=== PATIENT | female | born 1975 | race Caucasian/White ===

== ENCOUNTER → 2016-11-04 | Outpatient (CLI) | payer BC ==
--- NOTE | 2016-11-05 15:09 | RAD ---
DATE: 11/04/2016 EXAM: DIGITAL SCREEN BILAT W/CAD HISTORY: Routine screening COMPARISON: Baseline study This study was interpreted with the benefit of Computerized Aided Detection (CAD). FINDINGS: The fibroglandular pattern in the breasts is heterogeneously dense. This can limit the sensitivity of mammography. No breast mass is identified. Minimal benign type calcification is present in the right. No suspicious microcalcifications are evident. IMPRESSION: There is no mammographic evidence of malignancy in either breast. BI-RADS CATEGORY: 2 BENIGN FINDING(S) RECOMMENDED FOLLOW-UP: 12M 12 MONTH FOLLOW-UP PQRS compliance statement: Patient information was entered into a reminder system with a target due date for the next mammogram. Mammography is a sensitive method for finding small breast cancers, but it does not detect them all and is not a substitute for careful clinical examination. A negative mammogram does not negate a clinically suspicious finding and should not result in delay in biopsying a clinically suspicious abnormality. "Our facility is accredited by the [employer] Mammography Program."
== END | disposition home or self-care (01) ==
LOC: MAMMO 16:26
PROVIDERS: ATTEND Obstetrics & Gynecology
DX: Z12.31 Encounter for screening mammogram for malignant neoplasm of breast (principal)
CPT/HCPCS: G0202; 77067

== ENCOUNTER 2018-02-08 00:09 | Inpatient (IN) | payer BC ==
[2018-02-08] MEDS ORDERED: MORPHINE SULFATE 4 MG/ML DISP.SYRIN. (00:53)
[2018-02-08 00:55] LABS: ADD MAN DIFF? NO
[2018-02-08] MEDS: MORPHINE SULFATE 10 MG/ML VIAL. IV (00:57)
[2018-02-08 00:58] LABS: BASO # 0.1 x10^3/uL (0.0-0.2); BASO % 1 % (0-3); EOS # 0.8 x10^3/uL (0.0-0.7); EOS % 5 % (0-3); HEMATOCRIT 45.9 % (36.0-47.0); HEMOGLOBIN 16.1 g/dL (12.0-15.5); LYMPH # 3.8 x10^3/uL (1.0-4.8); LYMPH % 22 % (24-48); MEAN CORPUSCULAR HEMOGLOBIN 35 pg (25-35); MEAN CORPUSCULAR HGB CONC 35 g/dL (31-37); MEAN CORPUSCULAR VOLUME 99 fL (79-100); MONO % 6 % (0-9); NEUT # 11.6 x10^3uL (1.8-7.7); NEUT % 67 % (31-73); PLATELET COUNT 297 x10^3/uL (140-400); RED BLOOD COUNT 4.62 x10^6/uL (3.50-5.40); WHITE BLOOD COUNT 17.4 x10^3/uL (4.0-11.0)
[2018-02-08] MEDS: ONDANSETRON PF 4 MG/2 ML VIAL. IV (00:58)
[2018-02-08 01:03] LABS: BILIRUBIN,URINE NEGATIVE (NEG); CLARITY,URINE CLEAR; COLOR,URINE YELLOW; GLUCOSE,URINE NEGATIVE (NEG); NITRITE,URINE NEGATIVE (NEG); PH,URINE 5.5; PROTEIN,URINE NEGATIVE (NEG-TRACE); UROBILINOGEN,URINE 0.2 mg/dL (0.2 mg/dL)
[2018-02-08 01:06] LABS: ANION GAP 9 (6-14); BLOOD UREA NITROGEN 14 mg/dL (7-20); CALCIUM 8.4 mg/dL (8.5-10.1); CARBON DIOXIDE 26 mmol/L (21-32); CHLORIDE 103 mmol/L (98-107); CREATININE 0.9 mg/dL (0.6-1.0); GFR 68.3; GLUCOSE 121 mg/dL (70-99); NEG OBC UR NEG; POS OBC UR POS; SODIUM 138 mmol/L (136-145); U PREG PATIENT NEGATIVE (NEG)
[2018-02-08 01:08] LABS: BACTERIA,URINE FEW /HPF (0-FEW); SQUAMOUS EPITHELIAL CELL,UR MOD /LPF; WBC,URINE OCC /HPF (0-4)
[2018-02-08 01:14] LABS: ALBUMIN 3.7 g/dL (3.4-5.0); ALK PHOS 67 U/L (46-116); ALT (SGPT) 33 U/L (14-59); AST (SGOT) 11 U/L (15-37); DIRECT BILIRUBIN 0.1 mg/dL (0.0-0.2); LIPASE 213 U/L (73-393); TOTAL BILIRUBIN 0.4 mg/dL (0.2-1.0); TOTAL PROTEIN 7.2 g/dL (6.4-8.2)
[2018-02-08] MEDS ORDERED: CONTRAST GIVEN MC (01:15)
[2018-02-08] MEDS: IOHEXOL 300 MG/ML 100ML VIAL. IV (01:37)
[2018-02-08] MEDS ORDERED: IV RINGERS,LACTATED 1000ML 1,000 ML IV (02:30)
[2018-02-08] MEDS ORDERED: ONDANSETRON PF 4 MG/2 ML VIAL. IV ×2 (02:30→08:15)
[2018-02-08] MEDS: cefOXitin SODIUM IV Push 1 GM VIAL. IVP ×5 (03:04→23:08)
[2018-02-08] MEDS ORDERED: LIDOCAINE 1% PF 2 ML VIAL. ID (08:15)
[2018-02-08] MEDS ORDERED: fentaNYL PF VIAL 100 MCG/2 ML VIAL IV (08:15)
[2018-02-08] MEDS ORDERED: PROPOFOL 20 ML IV ×2 (08:37→10:17)
[2018-02-08] MEDS ORDERED: ONDANSETRON PF 4 MG/2 ML VIAL. (08:37)
[2018-02-08] MEDS ORDERED: fentaNYL PF VIAL 100 MCG/2 ML VIAL (08:37)
[2018-02-08] MEDS ORDERED: DEXAMETHASONE SOD PHOS 20 MG/5 ML VIAL. (08:37)
[2018-02-08] MEDS ORDERED: LIDOCAINE 2% PF Vial for OR 5 ML VIAL. (08:37)
[2018-02-08] MEDS ORDERED: ROCURONIUM 50 MG/5 ML VIAL. (08:37)
[2018-02-08] MEDS ORDERED: SUCCINYLCHOLINE 200 MG/10 ML VIAL. (08:37)
[2018-02-08] MEDS ORDERED: MIDAZOLAM HCL/PF 2 MG/2 ML VIAL. (09:18)
[2018-02-08] MEDS: BUPIVACAINE-EPI 0.25%-1:200000 50 ML VIAL. (09:51)
[2018-02-08] MEDS ORDERED: GLYCOPYRROLATE 1 MG/5 ML VIAL. (10:09)
[2018-02-08] MEDS ORDERED: NEOSTIGMINE METHYLSULFATE 5 MG/5 ML SYRINGE. (10:09)
[2018-02-08] MEDS ORDERED: SEVOFLURANE 61 TO 120 MINUTES. IH (10:24)
[2018-02-08] MEDS: IV RINGERS,LACTATED 1000ML 1,000 ML IV (10:30)
[2018-02-08] MEDS: PROCHLORPERAZINE 10 MG/2 ML VIAL. IV (10:50)
[2018-02-08] MEDS: fentaNYL PF VIAL 100 MCG/2 ML VIAL IV ×4 (10:50→12:22)
[2018-02-08] MEDS: MORPHINE SULFATE 4 MG/ML DISP.SYRIN. IV ×5 (11:26→16:04)
[2018-02-08] MEDS: oxyCODONE/APAP 5/325 1 TAB TABLET PO ×2 (18:46→23:09)
[2018-02-08] MEDS: LACTOBACILLUS RHAMNOSUS GG 1 CAPSULE. PO (20:32)
[2018-02-09] MEDS: cefOXitin SODIUM IV Push 1 GM VIAL. IVP ×2 (05:11→12:43)
[2018-02-09] MEDS: oxyCODONE/APAP 5/325 1 TAB TABLET PO ×2 (05:12→12:55)
[2018-02-09] MEDS: LACTOBACILLUS RHAMNOSUS GG 1 CAPSULE. PO (08:18)
[2018-02-09] MEDS: SOTALOL 80 MG TABLET. PO (08:19)
[2018-02-09] MEDS: DIGOXIN 250 MCG TABLET. PO (08:53)
== END 2018-02-09 17:00 | disposition home or self-care (01) | DRG 343 ==
LOC: ER 00:09 → 4 NORTH 02:20
PROC: 0DTJ4ZZ Resection of Appendix, Percutaneous Endoscopic Approach (ICD-10-PCS; principal; 2018-02-08 09:24)
DX: K35.80 Unspecified acute appendicitis (principal); E86.0 Dehydration; F17.210 Nicotine dependence, cigarettes, uncomplicated; J32.9 Chronic sinusitis, unspecified; Z90.710 Acquired absence of both cervix and uterus
CPT/HCPCS: 36415; 74177; 80048; 80076; 81001; 81025; 83690; 85025; 88304; 96374; 96375; 99285; 99285-25; A7015; J0330; J0694; J0780; J1100; J2250; J2270; J2405; J2704; J2710; J3010; J3490; J7030; J7120; Q9967

== ENCOUNTER 2021-04-07 14:53 | Emergency (ER) | payer BC ==
[~2021-04-07] VITALS: Ht 180.3 cm; Wt 97.3 kg
[~2021-04-07 14:53] MED LIST: DIGO250T3 PO; SOTA80TA48 PO
--- NOTE | 2021-04-07 15:22 | PHYS DOC ---
Past Medical History Past Medical History: No Pertinent History Additional Past Medical Histor: svt WITH MITRAL VALVE PROLAPSE (TIANNAEDY CORPORATE RECEPTIONIST) Past Surgical History: , Hysterectomy (ALBANEDY CONLEY CORPORATE RECEPTIONIST) Smoking Status: Current Every Day Smoker Alcohol Use: Occasionally Drug Use: None (EDY WYNN CORPORATE RECEPTIONIST) General Adult EDM: Chief Complaint: CHEST PAIN HPI: HPI: Patient is a 46 year old female who presents with early this morning woke up with a sharp stabbing pain in the left neck that went into the left shoulder and down into the left rib cage. She states she took some Aleve and went back to sleep. She stated that about 7:00 this morning she woke up and the pain was even worse. She states she is short of breath and the pain is now going into the chest and radiating through to the back and she states that sharp stabbing. States before coming to the emergency room she took 3 ibuprofen. She is rating her pain a 9 out of 10. Patient denies dizziness, headache, syncope, fever, cough, abdominal pain, nausea, vomiting, diarrhea, vision change, numbness or tingling, focal weakness. She is a history of SVT with mitral valve prolapse, sinus infection currently, hypertension, high cholesterol, , hysterectomy, smoker. She is currently taking metoprolol, atorvastatin, doxycycline for the sinus infection and Zyrtec. States she does not have a primary care doctor. She states that her chemist food is at [facility]. (EDY WYNN CORPORATE RECEPTIONIST) Review of Systems: Review of Systems: Constitutional: Denies fever or chills. [] Eyes: Denies change in visual acuity. [] HENT: Denies nasal congestion or sore throat. [] Respiratory: Denies cough or +shortness of breath. [] Cardiovascular: + chest pain or denies edema. [] GI: Denies abdominal pain, nausea, vomiting, bloody stools or diarrhea. [] : Denies dysuria. [] Musculoskeletal: + Left back back pain, + left neck or denies joint pain. + Left ribs [] Integument: Denies rash. [] Neurologic: Denies headache, focal weakness or sensory changes. [] Endocrine: Denies polyuria or polydipsia. [] Lymphatic: Denies swollen glands. [] Psychiatric: Denies depression or anxiety. [] (EDY WYNN APRN) Heart Score: C/O Chest Pain: Yes HEART Score for Chest Pain: HEART Score for Chest Pain Response (Comments) Value History Slighlty/Non-Suspicious 0 ECG Nonspecific Repolarizatio 1 Age >45 - < 65 1 Risk Factors >3 Risk Factors or Hx CAD 2 Troponin < Normal Limit 0 Total 4 Risk Factors: Risk Factors: DM, Current or recent (<one month) smoker, HTN, HLP, family history of CAD, obesity. Risk Scores: Score 0 - 3: 2.5% MACE over next 6 weeks - Discharge Home Score 4 - 6: 20.3% MACE over next 6 weeks - Admit for Clinical Observation Score 7 - 10: 72.7% MACE over next 6 weeks - Early Invasive Strategies (EDY WYNN APRN) Current Medications: Current Medications Medications (Trade) Dose Ordered Sig/Isaiah Start Time Stop Time Status Last Admin Dose Admin Aspirin (Edyta Aspirin) 325 mg 1X ONCE 04/07/21 15:15 04/07/21 15:16 UNV Fentanyl Citrate (Fentanyl 2ml Vial) 50 mcg 1X ONCE 04/07/21 15:15 04/07/21 15:16 UNV Orphenadrine Citrate (Norflex) 60 mg 1X ONCE 04/07/21 15:15 04/07/21 15:16 UNV Sodium Chloride 1,000 ml @ 1,000 mls/hr 1X ONCE 04/07/21 15:15 04/07/21 16:14 UNV (EDY WYNN APRN) Allergies: Allergies: Allergies Coded Allergies Type Severity Reaction Last Updated Verified Penicillins Allergy Unknown 02/08/18 Yes codeine Allergy Unknown 02/08/18 Yes latex Allergy Unknown 02/08/18 Yes (EDY WYNN APRN) Physical Exam: PE: Constitutional: Well developed, well nourished, no acute distress, non-toxic appearance. [] HENT: Normocephalic, atraumatic, bilateral external ears normal, oropharynx moist, no oral exudates, nose normal. [] Eyes: PERRLA, EOMI, conjunctiva normal, no discharge. [] Neck: Normal range of motion, no tenderness, supple, no stridor. [] Cardiovascular:Heart rate regular rhythm, no murmur [] Lungs & Thorax: Bilateral upper breath sounds clear and lower diminished to auscultation [] Abdomen: Bowel sounds normal, soft, no tenderness, no masses, no pulsatile melanie s. [] Skin: Warm, dry, no erythema, no rash. [] Back: No tenderness, no CVA tenderness. [] Extremities: No tenderness, no cyanosis, no clubbing, ROM intact, no edema. [] Neurologic: Alert and oriented X 3, normal motor function, normal sensory function, no focal deficits noted. [] Psychologic: Affect normal, judgement normal, mood normal. [] (EDY WYNN APRN) PE: Constitutional: Well developed, well nourished, no acute distress, non-toxic appearance HENT: Normocephalic, atraumatic Eyes: Conjunctiva normal, no discharge Neck: Normal range of motion, no tenderness, supple Lungs & Thorax: No respiratory distress, equal chest rise and fall Abdomen: Soft, no tenderness Skin: Warm, dry, no erythema, no rash Extremities: No tenderness, ROM intact, no edema Neurologic: Alert and oriented X 3, no focal deficits noted Psychologic: Affect normal, judgment normal (RASHAD BAÑUELOS DO) EKG: EK and read by Dr. Bañuelos is sinus rhythm no STEMI. (EDY WYNN APRN) Radiology/Procedures: Radiology/Procedures: [] Impression: [facility] [address] [place] [address] IMAGING REPORT Signed PATIENT: CAMRON GARCIA ACCOUNT: [id number] : 1975 LOCATION: ER AGE: 46 SEX: F EXAM STATUS: REG ER ORD. PHYSICIAN: EDY WYNN APRN REASON: chest pain PROCEDURE: PORTABLE CHEST 1V PROCEDURE: XR CHEST 1V.04/07/2021 4:10 PM REASON FOR STUDY: Reason: chest pain / Spl. Instructions: / History: . COMPARISON: Chest radiograph 05/27/2012. FINDINGS: There is some elevation of left hemidiaphragm. Hazy opacity is seen in the mid left lung. There is fullness of the left hilum. The right lung is clear. No pleural fluid is seen. Heart size is normal. IMPRESSION: Left hilar opacity and probably some upper lobe disease. Although the patient is relatively long, malignancy is a concern. CT chest may be useful. Electronically signed by: Elvia Groves Jr., MD (04/07/2021 4:11 PM) [facility] DICTATED and SIGNED BY: ELVIA GROVES Jr, MD DATE: 04/07/21 [id number] [facility] [address] [place] [address] IMAGING REPORT Signed PATIENT: CAMRON GARCIA ACCOUNT: [id number] : 1975 LOCATION: ER AGE: 46 SEX: F EXAM STATUS: REG ER ORD. PHYSICIAN: EDY WYNN APRN REASON: sharp chest pain radiating to back PROCEDURE: CT ANGIOGRAPHY CHEST CTA CHEST dated 04/07/2021 4:13 PM Indication:Reason: sharp chest pain radiating to back / Spl. Instructions: 100ML OMNI 350 / History: Comparison: Chest radiograph of earlier in the day. Technique: CT images were obtained using an infusion of 100 mL Omnipaque 350. MIP reconstructions were performed. One or more of the following individualized dose reduction techniques were utilized for this examination: 1. Automated exposure control 2. Adjustment of the mA and/or kV according to patient size 3. Use of iterative reconstruction technique Findings: There is a mass at the left hilum with obstruction of the main portion of the left upper lobe pulmonary artery and left upper lobe bronchus. Soft tissue density extends into the mediastinum and abuts the left atrial tendon age. Soft tissue abnormality here measures about 5.1 cm mediolaterally and 4.9 cm AP, although some of this may be atelectatic lung. There is some more peripheral infiltrate and atelectatic lung. There is a 3 mm nodule peripherally in the right upper lobe abutting the major fissure. The lungs otherwise are clear. The other central airways appear patent. Some mildly prominent axillary lymph nodes are seen bilaterally. There is a separate node at the AP window adjacent to the mass. This measures about 1.8 cm and is rounded. There is borderline enlarged subcarinal node. There is also borderline enlarged upper right hilar node. Evaluation of the pulmonary arterial tree shows no abnormal filling defect extending to the subsegmental branch level. Images through the upper abdomen show small hyperenhancing areas in both lobes the liver. The largest is seen anteriorly in the left lobe and measures about 2.6 cm. IMPRESSION: Left hilar, mediastinal and upper lobe mass suspicious for malignancy. Mild add itional adenopathy in the mediastinum and right hilum. Indeterminate liver lesions. These are not typical of most lung cancer metastases, although MRI is recommended for further characterization. Electronically signed by: Elvia Groves Jr., MD (04/07/2021 5:29 PM) [facility] DICTATED and SIGNED BY: ELVIA GROVES Jr, MD DATE: 04/07/21 [id number] (EDY WYNN APRN) Course & Med Decision Making: Course & Med Decision Making Pertinent Labs and Imaging studies reviewed. (See chart for details) See HPI. Chest pain cannot be reproduced with palpation but she states it does make it worse with movement of the left extremity. Lungs are clear in upper lobes and diminished in lower lobes. No extremity edema. Speaks in full clear sentences. Anxious. Skin pink warm and dry. Alert and oriented x4. Ambulatory with a steady gait. She has full range of motion in the left upper extremity. No unilateral swelling. Cap refills less than 2 seconds. Radial pulse strong and present. Chest x-ray and chest CT came back abnormal with a lung mass. Me and Dr. Bañuelos went in to speak with the patient and let her know the results. Patient is stable and in no distress. Her vital signs are within normal limits. Patient agrees to follow-up as outpatient as soon as possible by calling tomorrow with pulmonology. [] (EDY WYNN APRN) Course & Med Decision Making Patient presents with atypical chest pain. CTA concerning for focal mass. Patient is a smoker. Patient seen and evaluated by myself. Discussed concerning findings and need for patient to follow-up closely with pulmonology for further evaluation and definitive diagnosis. Prescription for pain medication provided. (RASHAD BAÑUELOS DO) Macy Disclaimer: Macy Disclaimer: This electronic medical record was generated, in whole or in part, using a voice recognition dictation system. (EDY WYNN APRN) Departure Departure Impression: Primary Impression: Mass of left lung Disposition: HOME / SELF CARE / HOMELESS Condition: STABLE Referrals: NO PCP (PCP) CHAS CHOUDHARY MD Patient Instructions: Incidental Abnormal Radiological Finding Additional Instructions: Follow-up as soon as possible. Remember to let them know that you were seen in the ER today and found a lung mass and you need to be seen urgently. If anything worsens return to the emergency room. Scripts Tramadol Hcl (TRAMADOL HCL) 50 Mg Tablet 50 MG PO Q6HRS PRN for PAIN, #14 TAB Prov: RASHAD BAÑUELOS DO 04/07/21 Attending Signature Attending Signature I have personally interviewed and examined the patient. All charts, labs, and imaging studies were reviewed. I agree with the PA/INSTRUCTIONAL SYSTEMS SPECIALIST's findings, exam, and plan. (RASHAD BAÑUELOS DO) EDY WYNN APRN Apr 07, 2021 15:22 RASHAD BAÑUELOS DO Apr 07, 2021 18:00
[2021-04-07] MEDS ORDERED: fentaNYL PF VIAL 100 MCG/2 ML VIAL IVP ONE ×2 (15:30→18:15)
[2021-04-07] MEDS ORDERED: ASPIRIN 325 MG TABLET PO ONE (15:30)
[2021-04-07] MEDS ORDERED: IV NORMAL SALINE 1000ML BAG 1,000 ML IV ONE ×2 (15:30→16:45)
[2021-04-07] MEDS ORDERED: ORPHENADRINE CITRATE 60 MG/2 ML VIAL. IV ONE (15:30)
[2021-04-07 15:40] LABS: BASO # 0.1 x10^3/uL (0.0-0.2); BASO % 1 % (0-3); EOS # 0.4 x10^3/uL (0.0-0.7); EOS % 3 % (0-3); HEMATOCRIT 41.9 % (36.0-47.0); HEMOGLOBIN 14.3 g/dL (12.0-15.5); LYMPH # 2.4 x10^3/uL (1.0-4.8); LYMPH % 19 % (24-48); MEAN CORPUSCULAR HEMOGLOBIN 34 pg (25-35); MEAN CORPUSCULAR HGB CONC 34 g/dL (31-37); MEAN CORPUSCULAR VOLUME 99 fL (79-100); MONO % 8 % (0-9); NEUT # 8.6 x10^3/uL (1.8-7.7); NEUT % 69 % (31-73); PLATELET COUNT 296 x10^3/uL (140-400); RED BLOOD COUNT 4.23 x10^6/uL (3.50-5.40); RED CELL DISTRIBUTION WIDTH 12.3 % (11.5-14.5); WHITE BLOOD COUNT 12.5 x10^3/uL (4.0-11.0)
[2021-04-07 16:02] LABS: CREATININE 0.8 mg/dL (0.6-1.0); GFR 77.2
[2021-04-07 16:09] LABS: ALBUMIN 3.8 g/dL (3.4-5.0); ALBUMIN/GLOBULIN RATIO 1.4 (1.0-1.7); MAGNESIUM 1.9 mg/dL (1.8-2.4); TOTAL BILIRUBIN 0.4 mg/dL (0.2-1.0); TOTAL PROTEIN 6.6 g/dL (6.4-8.2)
--- NOTE | 2021-04-07 16:14 | RAD ---
PROCEDURE: XR CHEST 1V.04/07/2021 4:10 PM REASON FOR STUDY: Reason: chest pain / Spl. Instructions: / History: . COMPARISON: Chest radiograph 05/27/2012. FINDINGS: There is some elevation of left hemidiaphragm. Hazy opacity is seen in the mid left lung. T here is fullness of the left hilum. The right lung is clear. No pleural fluid is seen. Heart size is normal. IMPRESSION: Left hilar opacity and probably some upper lobe disease. Although the patient is relative ly long, malignancy is a concern. CT chest may be useful. Electronically signed by: Yemi Groves Jr., MD (04/07/2021 4:11 PM) [facility]
[2021-04-07] MEDS ORDERED: CONTRAST GIVEN. MC PRN (16:15)
[2021-04-07] MEDS ORDERED: IOHEXOL 350 MG/ML 100 ML VIAL. IV ONE (16:15)
[2021-04-07 16:34] LABS: BILIRUBIN,URINE NEGATIVE (NEG); CLARITY,URINE CLEAR; COLOR,URINE YELLOW; NITRITE,URINE NEGATIVE (NEG); PH,URINE 5.5 (<5.0-8.0); PROTEIN,URINE NEGATIVE (NEG-TRACE); UROBILINOGEN,URINE 0.2 mg/dL (0.2 mg/dL)
[2021-04-07 16:44] LABS: AMORPHOUS SEDIMENT,UR PRESENT /HPF; BACTERIA,URINE FEW /HPF (0-FEW)
[2021-04-07 16:45] LABS: BARBITURATES NEG (NEG); BENZODIAZEPINES NEG (NEG); CANNABINOIDS NEG (NEG); COCAINE NEG (NEG); METHADONE NEG (NEG); OPIATES NEG (NEG); PHENCYCLIDINE NEG (NEG)
[2021-04-07] MEDS ORDERED: ACETAMINOPHEN 500 MG TABLET PO ONE (16:45)
[2021-04-07] MEDS ORDERED: methylPREDNISolone SOD SUCC PF 125 MG/2 ML VIAL. IV ONE (16:45)
[2021-04-07] MEDS ORDERED: ALBUTEROL SULFATE 2.5 MG/3 ML NEBU. NEB ONE (16:45)
[2021-04-07 16:46] LABS: RBC,URINE RARE /HPF (0-2); WBC,URINE RARE /HPF (0-4)
[2021-04-07 16:53] LABS: AMPHETAMINE/METHAMPHETAMINE NEG (NEG)
--- NOTE | 2021-04-07 17:32 | RAD ---
CTA CHEST dated 04/07/2021 4:13 PM Indication:Reason: sharp chest pain radiating to back / Spl. Instructions: 100ML OMNI 350 / History: Comparison: Chest radiograph of earlier in the day. Technique: CT images were obtained using an infusion of 100 mL Omnipaque 350. MIP reconstructions wer e performed. One or more of the following individualized dose reduction techniques were utilized for this examinat ion: 1. Automated exposure control 2. Adjustment of the mA and/or kV according to patient size 3. Use of iterative reconstruction technique Findings: There is a mass at the left hilum with obstruction of the main portion of the left upper lobe pulmona ry artery and left upper lobe bronchus. Soft tissue density extends into the mediastinum and abuts th e left atrial tendon age. Soft tissue abnormality here measures about 5.1 cm mediolaterally and 4.9 c m AP, although some of this may be atelectatic lung. There is some more peripheral infiltrate and ate lectatic lung. There is a 3 mm nodule peripherally in the right upper lobe abutting the major fissure . The lungs otherwise are clear. The other central airways appear patent. Some mildly prominent axill ashish lymph nodes are seen bilaterally. There is a separate node at the AP window adjacent to the mass. This measures about 1.8 cm and is rounded. There is borderline enlarged subcarinal node. There is al so borderline enlarged upper right hilar node. Evaluation of the pulmonary arterial tree shows no abnormal filling defect extending to the subsegmen yessenia branch level. Images through the upper abdomen show small hyperenhancing areas in both lobes the liver. The largest is seen anteriorly in the left lobe and measures about 2.6 cm. IMPRESSION: Left hilar, mediastinal and upper lobe mass suspicious for malignancy. Mild additional adenopathy in the mediastinum and right hilum. Indeterminate liver lesions. These are not typical of most lung canc er metastases, although MRI is recommended for further characterization. Electronically signed by: Yemi Groves Jr., MD (04/07/2021 5:29 PM) [facility]
[2021-04-07 17:38] VITALS: BP 108/53
[2021-04-07] MEDS ORDERED: TRAM50TA PO (17:57)
--- NOTE | 2021-04-07 23:27 | EKG ---
[facility] [address] [place] [address] Test Date: 2021-04-07 Test Time: 15:04:22 Pat Name: CAMRON GARCIA Department: Room: Gender: F Laboratory Manager: : 1975 Requested By: EDY WYNN Order Number: [id number] Reading MD: Measurements Intervals [place] Rate: 89 P: 49 CA: 134 QRS: 109 QRSD: 84 T: 75 QT: 352 QTc: 429 Interpretive Statements SINUS RHYTHM RIGHTWARD AXIS LOW LIMB LEAD VOLTAGE QRS(T) CONTOUR ABNORMALITY CONSIDER ANTEROSEPTAL MYOCARDIAL DAMAGE CONSISTENT WITH HIGH LATERAL INFARCT PROBABLY OLD ABNORMAL ECG RI6.02 No previous ECG available for comparison
== END 2021-04-07 18:20 | disposition home or self-care (01) ==
LOC: ER 14:53
DX: R91.8 Other nonspecific abnormal finding of lung field (principal); R07.81 Pleurodynia; M54.2 Cervicalgia; M25.512 Pain in left shoulder; R06.02 Shortness of breath; F17.200 Nicotine dependence, unspecified, uncomplicated; Z88.0 Allergy status to penicillin; Z88.5 Allergy status to narcotic agent; Z91.040 Latex allergy status
CPT/HCPCS: 36415; 71045; 71275; 80053; 80307; 81001; 83690; 83735; 83880; 84484; 85025; 93005; 96361; 96374; 96375; 96376; 99285; J2360; J3010; J7030; Q9967

== ENCOUNTER → 2021-04-09 | Outpatient (CLI) | payer BC ==
[2021-04-07 17:38] VITALS: BP 108/53
[~2021-04-09] MED LIST changes: +ATOR20TA58 PO; +CETI10TA74 PO; +IBUP-1027 PO; +METO50TA6 PO; +TRAM50TA PO
== END ==
LOC: LAB 11:50
PROVIDERS: ATTEND Internal Medicine Pulmonary Disease
DX: Z01.812 Encounter for preprocedural laboratory examination (principal); R91.8 Other nonspecific abnormal finding of lung field; Z20.822 Contact with and (suspected) exposure to COVID-19
CPT/HCPCS: U0003; U0005

== ENCOUNTER → 2021-04-12 | Day surgery (SDC) | payer BC ==
[~2021-04-12] VITALS: Ht 180.3 cm; Wt 192.0 kg
[~2021-04-12] MED LIST changes: +ALBUTEROL SULFATE 2.5 MG/3 ML NEBU. NEB PRN; +EPINEPHrine 1 MG/ML VIAL INJ PRN; +EPINEPHrine 1 MG/ML VIAL ONE; +IV RINGERS,LACTATED 1000ML 1,000 ML IV ONE; +LIDOCAINE 1% Multi-Dose 20 ML VIAL. INJ PRN; +LIDOCAINE 1% Multi-Dose 20 ML VIAL. ONE; +LIDOCAINE 2% VISCOUS 100 ML BOTTLE. MM PRN; +LIDOCAINE 2% VISCOUS 100 ML BOTTLE. ONE; +LIDOCAINE 4% TOPICAL 50 ML SOLUTION. MM PRN; +LIDOCAINE 4% TOPICAL 50 ML SOLUTION. ONE; +PROPOFOL 10 MG/ML (20ML) VIAL. IV ONE
[2021-04-12 11:12] VITALS: BP 105/65
[2021-04-12 11:24] LABS: BASO # 0.1 x10^3/uL (0.0-0.2); BASO % 1 % (0-3); EOS # 0.4 x10^3/uL (0.0-0.7); EOS % 3 % (0-3); HEMATOCRIT 40.6 % (36.0-47.0); HEMOGLOBIN 14.1 g/dL (12.0-15.5); LYMPH # 2.1 x10^3/uL (1.0-4.8); LYMPH % 19 % (24-48); MEAN CORPUSCULAR HEMOGLOBIN 34 pg (25-35); MEAN CORPUSCULAR HGB CONC 35 g/dL (31-37); MEAN CORPUSCULAR VOLUME 98 fL (79-100); MONO # 0.7 x10^3/uL (0.0-1.1); MONO % 7 % (0-9); NEUT # 7.4 x10^3/uL (1.8-7.7); NEUT % 70 % (31-73); PLATELET COUNT 366 x10^3/uL (140-400); RED BLOOD COUNT 4.14 x10^6/uL (3.50-5.40); RED CELL DISTRIBUTION WIDTH 12.4 % (11.5-14.5); WHITE BLOOD COUNT 10.6 x10^3/uL (4.0-11.0)
[2021-04-12 12:30] VITALS: BP 107/50
--- NOTE | 2021-04-12 12:32 | OP ---
DATE OF SURGERY: 04/12/2021 BRONCHOSCOPY NOTE INDICATION: Lung mass. DESCRIPTION OF PROCEDURE: Informed consent was obtained from the patient. All risks and benefits were explained. She agreed to proceed with the procedure. Propofol was used by Anesthesia for sedation. Bronch was introduced through the right nostril. The upper airway was passed. Vocal cords moves equally with respiration. The trachea was entered. No tracheal lesions seen. Right lung was first examined. All subsegments of right upper, right middle and right lower were examined. No endobronchial lesion seen. The bronch was then introduced into the left lung. There was a complete occlusion of the left upper lobe bronchus by the endobronchial tumor. Mucosa was hyperemic. Multiple biopsies from that area was performed including bronchial wash and cytology brush. Upon inspection of the left lower lobe, there was some extrinsic compression, but no endobronchial lesion seen in the left lower lobe. The patient tolerated the procedure well. IMPRESSION: 1. Endobronchial lesion seen in the left upper lobe bronchus causing complete occlusion. 2. Multiple biopsies, cytology brush and bronchial wash was performed from this area. 3. There was extrinsic compression of the opening of the left lower lobe bronchus. No endobronchial lesion seen in that lobe. 4. The patient is to follow up with Dr. Lynch to discuss the results of the biopsy. REBECCA/SIGRID DR: Lizette TID: [id number] [facility] HEALTHCAREDerrek
--- NOTE | 2021-04-17 15:14 | PATHOLOGY ---
Note [facility] Accession Number: [id number] TESTS RESULT FLAG UNITS REF RANGE LAB Clinician Provided Cytology Information No. of containers..01 Other (Miscellaneous) Source: BALBINA BRONCH BRUSH DIAGNOSIS: BALBINA BRONCH BRUSH NEGATIVE FOR MALIGNANT CELLS. NORMAL BRONCHIAL CELLS ARE PRESENT. ABUNDANT RED BLOOD CELLS ARE PRESENT. Signed out by: 02 Isai Calle MD, Pathologist NPI- [id number] Performed by: uLcy Molina Cinnamon Grinder ([facility]) Gross description: 01 DIETER GARCIAS, 1 F /LCS 04/16/2021 1630 Local FLAG LEGEND: L-Low Normal,H-High Normal,LL-Alert Low,HH-Alert High <-Panic Low,>-Panic High,A-Abnormal,AA-Critical Abnormal Performed at: [address] [address] Mauro Zaidi MD, 02 [facility] [address] [place] [address] Isai Calle MD, Specimen Comment: A courtesy copy of this report has been sent to [phone] Specimen Comment: Report sent to Specimen Comment: A duplicate report has been generated due to demographic updates. Performed at: [address] [place] [address] [address], [place] [id number] MD Mauro Zaidi MD Phone: [phone]
--- NOTE | 2021-04-17 15:14 | PATHOLOGY ---
Note [facility] Accession Number: [id number] TESTS RESULT FLAG UNITS REF RANGE LAB Clinician Provided Cytology Information No. of containers..01 Other (Miscellaneous) Source: BALBINA BAL DIAGNOSIS: BALBINA BAL SUSPICIOUS FOR MALIGNANT CELLS. RARE CLUSTER OF ATYPICAL CELLS SUSPICIOUS FOR SMALL CELL CARCINOMA. SCANT CELLULARITY. Signed out by: 02 Isai Calle MD, Pathologist NPI- [id number] Performed by: Lucy oMlina, Civil Defense Director ([facility]) Gross description: 01 .2ML, CLOUDY RED, 1 TP /LCS 04/16/2021 1636 Local FLAG LEGEND: L-Low Normal,H-High Normal,LL-Alert Low,HH-Alert High <-Panic Low,>-Panic High,A-Abnormal,AA-Critical Abnormal Performed at: [address] [place] [address] Mauro Zaidi MD, 02 [facility] [address] [place] [address] Isai Calle MD, Specimen Comment: A courtesy copy of this report has been sent to [phone] Specimen Comment: Report sent to Specimen Comment: A duplicate report has been generated due to demographic updates. Performed at: [address] [place] [address] [address], [place], [place] [id number] MD Mauro Zaidi MD Phone: [phone]
--- NOTE | 2021-04-17 15:14 | PATHOLOGY ---
Note [facility] Accession Number: [id number] TESTS RESULT FLAG UNITS REF RANGE LAB Clinician Provided Cytology Information No. of containers..01 Other (Miscellaneous) Source: BALBINA BRUSHTIP DIAGNOSIS: 02 BALBINA BRUSHTIP SUSPICIOUS FOR MALIGNANT CELLS. RARE CLUSTER OF ATYPICAL CELLS SUSPICIOUS FOR SMALL CELL CARCINOMA. SCANT CELLULARITY. Signed out by: 02 Isai Calle MD, Pathologist NPI- [id number] Performed by: Lucy Molina, Patient Relations Manager ([facility]) Gross description: 01 DIETER GARCIAS, 1 TP /LCS 04/16/2021 1634 Local FLAG LEGEND: L-Low Normal,H-High Normal,LL-Alert Low,HH-Alert High <-Panic Low,>-Panic High,A-Abnormal,AA-Critical Abnormal Performed at: [address] [address] Mauro Zaidi MD, 02 [facility] [address] [place] [address] Isai Calle MD, Specimen Comment: A courtesy copy of this report has been sent to [phone] Specimen Comment: Report sent to Specimen Comment: A duplicate report has been generated due to demographic updates. Performed at: [address], [place], [place] [id number] MD Mauro Zaidi MD Phone: [phone]
--- NOTE | 2021-04-18 15:11 | PATHOLOGY ---
[facility] Accession Number: [id number] . 01 Material submitted: . lung - BALBINA BRONCHIAL BIOPSY. Modifiers: left, upper . 02 Diagnosis: Bronchial biopsy, left upper lobe: - SMALL CELL UNDIFFERENTIATED CARCINOMA. SEE COMMENT. (JPM:cindy; 04/17/2021) [facility] 04/18/2021 0847 Local . 02 Comment: Sections of the left upper lobe bronchial biopsy reveal segments of bronchial mucosa. There are irregular solid nests of malignant cells which focally undermine the surface bronchial mucosa. The malignant cells are small and have a high N/C ratio. The malignant cells have rounded to ovoid nuclei having finely dispersed chromatin. There is nuclear molding. There are mitotic features and increased apoptosis. There is focal tumor necrosis. A panel of immunoperoxidase stains is obtained on A1 and yields the following results: . AE1/AE3: Tumor cells show dot like positivity. Cytokeratin 7: Tumor cells positive. TTF-1: Tumor cells positive. Synaptophysin: Tumor cells positive. CD56: Tumor cells positive. CK5/6: Tumor cells negative. . 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 The case is also examined by Dr. Zaidi, who concurs with the diagnosis. The results are discussed with Dr. Lynch on 04/17/2021 at 3:48 p.m. (JPM:cindy; 04/17/2021) . Special stains performed: Immunoperoxidase stains for AE1/AE3, CK7, CD56, TTF-1, synaptophysin, and CK5/6. . 02 Electronically signed: . Isai Calle MD, Pathologist NPI- [id number] . 01 Gross description: . The specimen is received in formalin, labeled "Beth Flavio". No source is listed on the container. The source is listed on the requisition as, "BBX BALBINA". Received is a segment of pale drummond tissue measuring 0.2 cm in maximum dimensions. The specimen is filtered and entirely submitted in cassette A1. (CAA; 04/16/2021) QAC/QAC 04/16/2021 1152 Local . 02 Pathologist provided ICD-10: C34.12 . 02 CPT . 311482, D04777, [id number] Specimen Comment: A courtesy copy of this report has been sent to [phone] Specimen Comment: Report sent to Performed at: 01 [facility] [address] [facility] [address], [place] [id number] MD Mauro Zaidi MD Phone: [phone] Performed at: 02 [facility] [address] [place], [place] [id number] MD Isai Calle MD Phone: [phone]
== END | disposition home or self-care (01) ==
LOC: SURG 10:43
PROVIDERS: ATTEND Internal Medicine Critical Care Medicine
DX: R91.8 Other nonspecific abnormal finding of lung field (principal); C34.12 Malignant neoplasm of upper lobe, left bronchus or lung; I10 Essential (primary) hypertension; M19.90 Unspecified osteoarthritis, unspecified site; F41.9 Anxiety disorder, unspecified; F17.210 Nicotine dependence, cigarettes, uncomplicated; Z79.899 Other long term (current) drug therapy; Z88.0 Allergy status to penicillin; Z91.040 Latex allergy status; Z88.5 Allergy status to narcotic agent
CPT/HCPCS: 31625; 36415; 85025; 87070; 87205; 88104; 88112; 88305; 88341; 88342; 94640; J0171; J2704; J3490; J7613; 31622

== ENCOUNTER → 2021-04-19 | Outpatient (CLI) | payer BC ==
[2021-04-12 12:30] VITALS: BP 107/50
[~2021-04-19] MED LIST changes: -ALBUTEROL SULFATE 2.5 MG/3 ML NEBU. NEB PRN; -ATOR20TA58 PO; -EPINEPHrine 1 MG/ML VIAL INJ PRN; -EPINEPHrine 1 MG/ML VIAL ONE; -IV RINGERS,LACTATED 1000ML 1,000 ML IV ONE; -LIDOCAINE 1% Multi-Dose 20 ML VIAL. INJ PRN; -LIDOCAINE 1% Multi-Dose 20 ML VIAL. ONE; -LIDOCAINE 2% VISCOUS 100 ML BOTTLE. MM PRN; -LIDOCAINE 2% VISCOUS 100 ML BOTTLE. ONE; -LIDOCAINE 4% TOPICAL 50 ML SOLUTION. MM PRN; -LIDOCAINE 4% TOPICAL 50 ML SOLUTION. ONE; -PROPOFOL 10 MG/ML (20ML) VIAL. IV ONE
[2021-04-19 11:47] LABS: BASO # 0.1 x10^3/uL (0.0-0.2); BASO % 1 % (0-3); EOS # 0.7 x10^3/uL (0.0-0.7); EOS % 5 % (0-3); HEMATOCRIT 43.3 % (36.0-47.0); HEMOGLOBIN 14.8 g/dL (12.0-15.5); LYMPH # 2.6 x10^3/uL (1.0-4.8); LYMPH % 20 % (24-48); MEAN CORPUSCULAR HEMOGLOBIN 34 pg (25-35); MEAN CORPUSCULAR HGB CONC 34 g/dL (31-37); MEAN CORPUSCULAR VOLUME 100 fL (79-100); MONO # 0.9 x10^3/uL (0.0-1.1); MONO % 7 % (0-9); NEUT # 8.9 x10^3/uL (1.8-7.7); NEUT % 67 % (31-73); PLATELET COUNT 415 x10^3/uL (140-400); RED BLOOD COUNT 4.33 x10^6/uL (3.50-5.40); RED CELL DISTRIBUTION WIDTH 12.4 % (11.5-14.5); WHITE BLOOD COUNT 13.2 x10^3/uL (4.0-11.0)
[2021-04-19 11:56] LABS: CALCIUM 9.2 mg/dL (8.5-10.1); CREATININE 0.8 mg/dL (0.6-1.0); GFR 77.2; POTASSIUM 4.4 mmol/L (3.5-5.1)
[2021-04-19 12:02] LABS: ALBUMIN 3.5 g/dL (3.4-5.0); ALBUMIN/GLOBULIN RATIO 0.9 (1.0-1.7); TOTAL BILIRUBIN 0.3 mg/dL (0.2-1.0); TOTAL PROTEIN 7.3 g/dL (6.4-8.2)
== END ==
LOC: ONCLAB 11:25
PROVIDERS: ATTEND Internal Medicine Hematology & Oncology
DX: C34.02 Malignant neoplasm of left main bronchus (principal)
CPT/HCPCS: 36415; 80053; 85025

== ENCOUNTER → 2021-04-22 | Outpatient (CLI) | payer BC ==
[2021-04-12 12:30] VITALS: BP 107/50
[~2021-04-22] MED LIST changes: +GADOTERATE 7.5 MMOL/15ML VIAL. IVP ONE; +IOHEXOL 240 MG/ML 50ML VIAL. PO ONE; +IOHEXOL 300 MG/ML 100ML VIAL. IV ONE
--- NOTE | 2021-04-22 12:39 | RAD ---
Study: CT abdomen/pelvis with intravenous contrast Indication: Small cell lung cancer. Comparison: CT abdomen/pelvis 02/08/2018; correlation is made to a CT chest from 04/07/2021 Technique: Helical CT imaging performed of the abdomen and pelvis after the intravenous administratio n of 75 cc Omnipaque 300 contrast. Sagittal and coronal reformats were obtained. One or more of the following individualized dose reduction techniques were utilized for this examinat ion: 1. Automated exposure control 2. Adjustment of the mA and/or kV according to patient size 3. Use of iterative reconstruction technique. Findings: Development of a small left pleural effusion with mild overlying volume loss. Heterogeneous increased density at the left hepatic lobe with bulging of the hepatic margin favored a hemangioma and was present on the 2018 comparison. A small area of enhancement within the central ri ght hepatic lobe on the recently performed CT chest is without a well-defined correlate on this exam but could represent an additional hemangioma. Gallstone/stones at the fundal region without ancillary findings of cholecystitis. Nondilated biliary tree. Unremarkable pancreas and spleen. No discrete ad renal gland mass. Unremarkable kidneys and urinary bladder. No definitive uterine mass. Unremarkable right ovary. Left ovarian cystic foci the largest measuring up to approximately 2.4 cm transverse on image 69 series 2. Probable adjacent functional or collapsin g cyst measuring 1.7 cm transverse. No localized colonic wall thickening. Absent appendix. Nonobstructed small bowel. Small nodular focus along the anterior aspect of the gastric antrum, image 29 series 2, measuring approximately 1.8 x 1. 4 x 1.4 cm but a similar finding was present on the 2018 comparison suggesting this is physiologic/ch ronic. Nonaneurysmal aorta. No lymph node is identified below the diaphragm that meets pathologic criteria b ased on size. Small volume free fluid within the pelvis. No newly seen osseous abnormality. A sclerotic focus along the left acetabulum is unchanged as is a s maller area of sclerosis within L4. Impression: 1. No definitive manifestations of metastatic disease below the diaphragm. The finding within the le ft hepatic lobe described on the recently performed CT chest was present in 2018 and is typical of a hemangioma. The smaller abnormality on the recent CT chest in the central right hepatic lobe is not w ell seen on this exam but could represent an additional hemangioma and again would be atypical for a lung metastasis. 2. Interval development of a small left pleural effusion. 3. Left ovarian cystic foci as well as some free fluid within the pelvis is not beyond what is often seen in a patient this age who is presumably premenopausal. Electronically signed by: RENETTA NESS MD (04/22/2021 12:36 PM) [facility]
--- NOTE | 2021-04-22 13:13 | RAD ---
MRI of the Brain without and with Contrast 04/22/2021 Clinical History: Small cell lung cancer. Technique: Unenhanced T1-weighted sagittal and axial and FLAIR, T2-weighted, gradient echo and diffus ion-weighted axial images of the brain were obtained. After the intravenous administration of 15 cc o f Clariscan, enhanced T1-weighted axial, sagittal and coronal images of the brain were obtained. Findings: The cerebellar tonsils project 1 cm below the foramen magnum consistent with a Chiari I mal formation. A syrinx is seen within the cervical spinal cord at the C1-2 level which measures 1.1 x 0. 5 x 0.4 cm in craniocaudal, AP and transverse dimensions. The ventricles are within normal limits in size and configuration. No area of significant abnormal si gnal intensity is seen involving the brain parenchyma. No extra-axial fluid collection is seen. There is no MRI evidence of acute ischemia/infarction. A 1.5 cm venous angioma seen involving the right diaz perior parietal lobe. No area of significant abnormal contrast enhancement is seen. Mild to moderate mucosal thickening is seen scattered throughout the paranasal sinuses. Normal flow v oids are seen within the major vascular structures surrounding the brain parenchyma. IMPRESSION: 1. Chiari I malformation. A syrinx is seen within the superior cervical spinal cord which measures 1. 1 x 0.5 x 0.4 cm in size. 2. No acute parenchymal abnormality is seen. There is no MRI evidence of metastatic disease involving the brain parenchyma. Electronically signed by: Hubert Zee MD (04/22/2021 1:11 PM) [id number]
== END ==
LOC: MRI 08:52
PROVIDERS: ATTEND Internal Medicine Hematology & Oncology
DX: C34.02 Malignant neoplasm of left main bronchus (principal); G93.5 Compression of brain; K80.20 Calculus of gallbladder without cholecystitis without obstruction; J90 Pleural effusion, not elsewhere classified; D18.09 Hemangioma of other sites; N83.202 Unspecified ovarian cyst, left side; M89.8X8 Other specified disorders of bone, other site
CPT/HCPCS: 70553; 74177; A9575; Q9966; Q9967

== ENCOUNTER → 2021-04-23 | Outpatient (CLI) | payer BC ==
[2021-04-12 12:30] VITALS: BP 107/50
[~2021-04-23] MED LIST changes: +ATOR20TA58 PO; -GADOTERATE 7.5 MMOL/15ML VIAL. IVP ONE; -IOHEXOL 240 MG/ML 50ML VIAL. PO ONE; -IOHEXOL 300 MG/ML 100ML VIAL. IV ONE
[2021-04-23 11:04] LABS: BASO # 0.1 x10^3/uL (0.0-0.2); BASO % 1 % (0-3); EOS # 0.6 x10^3/uL (0.0-0.7); EOS % 6 % (0-3); HEMATOCRIT 40.6 % (36.0-47.0); LYMPH # 2.1 x10^3/uL (1.0-4.8); LYMPH % 21 % (24-48); MEAN CORPUSCULAR HEMOGLOBIN 34 pg (25-35); MEAN CORPUSCULAR HGB CONC 34 g/dL (31-37); MEAN CORPUSCULAR VOLUME 98 fL (79-100); MONO # 0.6 x10^3/uL (0.0-1.1); MONO % 6 % (0-9); NEUT # 6.9 x10^3/uL (1.8-7.7); NEUT % 67 % (31-73); PLATELET COUNT 399 x10^3/uL (140-400); RED BLOOD COUNT 4.14 x10^6/uL (3.50-5.40); RED CELL DISTRIBUTION WIDTH 12.4 % (11.5-14.5); WHITE BLOOD COUNT 10.3 x10^3/uL (4.0-11.0)
[2021-04-23 11:20] LABS: CALCIUM 8.7 mg/dL (8.5-10.1); CREATININE 0.7 mg/dL (0.6-1.0); GFR 90.1; POTASSIUM 3.8 mmol/L (3.5-5.1)
[2021-04-23 11:26] LABS: ALBUMIN 3.3 g/dL (3.4-5.0); ALBUMIN/GLOBULIN RATIO 0.9 (1.0-1.7); TOTAL BILIRUBIN 0.4 mg/dL (0.2-1.0); TOTAL PROTEIN 7.1 g/dL (6.4-8.2)
== END ==
LOC: ONCLAB 09:09
PROVIDERS: ATTEND Physician Assistant
DX: C34.02 Malignant neoplasm of left main bronchus (principal)
CPT/HCPCS: 36415; 80053; 85025

== ENCOUNTER → 2021-04-24 | Outpatient (CLI) | payer BC ==
[2021-04-12 12:30] VITALS: BP 107/50
== END ==
LOC: ONCLAB 09:35
PROVIDERS: ATTEND Physician Assistant
DX: C34.02 Malignant neoplasm of left main bronchus (principal)
CPT/HCPCS: 36415; 84550

== ENCOUNTER 2021-04-25 06:51 | Outpatient (CLI) | payer BC ==
[~2021-04-25] VITALS: Ht 180.3 cm; Wt 87.0 kg
[2021-04-25] VITALS (7 sets, daily range): BP systolic 98–115; BP diastolic 52–75
[~2021-04-25 06:51] MED LIST changes: -ATOR20TA58 PO
[2021-04-25] MEDS ORDERED: ATOR20TA58 PO (08:08)
[2021-04-25] MEDS ORDERED: fentaNYL PF VIAL 100 MCG/2 ML VIAL ONE (08:24)
[2021-04-25] MEDS ORDERED: MIDAZOLAM HCL/PF 5 MG/5 ML VIAL. ONE (08:24)
[2021-04-25] MEDS ORDERED: LIDOCAINE 1%/EPI 1:100,000 20 ML VIAL. ONE (08:32)
[2021-04-25] MEDS ORDERED: MIDAZOLAM HCL/PF 5 MG/5 ML VIAL. IV ONE (09:00)
[2021-04-25] MEDS ORDERED: fentaNYL PF VIAL 100 MCG/2 ML VIAL IV ONE (09:00)
[2021-04-25] MEDS ORDERED: LIDOCAINE 1%/EPI 1:100,000 20 ML VIAL. INJ ONE (09:00)
--- NOTE | 2021-04-25 09:19 | RAD ---
Procedure: Ultrasound and fluoroscopically guided placement of right internal jugular power port.. 04/25/2021 7:12 AM Clinical Indication: Small cell lung cancer Sedation: Conscious sedation was administered for 30 minutes. The patient was monitored by a qualified independent observer throughout the time of sedation. Please refer to the medical record for exact doses of medications utilized to achieve moderate sedation. Fluoroscopy time: 1 minutes Dose area product: 4 Gycm2 Consent: The procedure was explained in its entirety to the patient or the patients designated small business representative by a member of the treatment team, including a discussion of the risks, benefits and commonly accepted alternatives to the procedure, as well as the expected consequences of no therapy whatsoever. Discussion of the risks included, but was not limited to, those that are most frequent and those that are rare but possibly severe or life-threatening, as well as the possibility of unforeseen complications. Technique and Findings: All elements of maximal sterile barrier technique including the use of a cap, mask, sterile gown, sterile gloves, large sterile sheet, appropriate hand hygiene, and 2% chlorhexidine for cutaneous antisepsis (or acceptable alternative antiseptic per current guidelines) were followed for this procedure. Following informed consent, and a timeout procedure, the patient was prepped and draped in the usual sterile fashion. Ultrasound interrogation of the right neck revealed patency and compressibility of the right internal jugular vein. A 21-gauge micropuncture was then used to gain access to this vein under ultrasound guidance. A hard copy ultrasound image was recorded. The needle was exchanged over a wire for a sheath. A 1 inch incision was made several centimeters inferior to the venotomy site. A catheter was tunneled from this site dermatotomy site in the neck. Catheter was advanced through peel-away sheath such that its tip was in the proximal right atrium with the patient supine. The catheter was trimmed to length and connected to the port reservoir. The port was found to flush and aspirate normally. The wound was closed in layers using 4-0 Vicryl suture. Sterile dressings were applied. Impression: Successful ultrasound and fluoroscopically guided placement of a right internal jugular PowerPort
--- NOTE | 2021-04-25 10:42 | NUR ---
Discharge Note: CAMRON GARCIA Discharge instructions and discharge home medications reviewed with Patient and a copy given. All questions have been answered and understanding verbalized. The following instructions and handouts were given: Port instructions and moderate sedation Discontinued lines and drains: rigth hand IV dc'd, tip intact, and bandage applied. Patient discharged to [facility] with 's nurse via wheelchair.
== END 2021-04-25 10:47 ==
LOC: INTRAD 06:51
PROVIDERS: ATTEND Internal Medicine Hematology & Oncology
DX: C34.12 Malignant neoplasm of upper lobe, left bronchus or lung (principal); I10 Essential (primary) hypertension; M19.90 Unspecified osteoarthritis, unspecified site; F41.9 Anxiety disorder, unspecified; F17.210 Nicotine dependence, cigarettes, uncomplicated; Z90.710 Acquired absence of both cervix and uterus; Z98.890 Other specified postprocedural states
CPT/HCPCS: 36561; 76937; 77001; 87426; 99152; 99153; C1788; C1892; J0690; J2250; J3010; J3490

== ENCOUNTER → 2021-04-30 | Outpatient (CLI) | payer BC ==
[2021-04-25 10:16] VITALS: BP 103/52
[~2021-04-30] MED LIST changes: +ATOR20TA58 PO
[2021-04-30 10:36] LABS: BASO % 1 % (0-3); EOS # 0.3 x10^3/uL (0.0-0.7); EOS % 3 % (0-3); HEMATOCRIT 38.1 % (36.0-47.0); HEMOGLOBIN 13.3 g/dL (12.0-15.5); LYMPH # 2.1 x10^3/uL (1.0-4.8); LYMPH % 24 % (24-48); MEAN CORPUSCULAR HEMOGLOBIN 34 pg (25-35); MEAN CORPUSCULAR HGB CONC 35 g/dL (31-37); MEAN CORPUSCULAR VOLUME 99 fL (79-100); MONO # 0.4 x10^3/uL (0.0-1.1); MONO % 4 % (0-9); NEUT # 5.8 x10^3/uL (1.8-7.7); NEUT % 68 % (31-73); PLATELET COUNT 205 x10^3/uL (140-400); RED BLOOD COUNT 3.87 x10^6/uL (3.50-5.40); RED CELL DISTRIBUTION WIDTH 12.3 % (11.5-14.5); WHITE BLOOD COUNT 8.6 x10^3/uL (4.0-11.0)
[2021-04-30 10:44] LABS: CALCIUM 8.1 mg/dL (8.5-10.1); CREATININE 0.7 mg/dL (0.6-1.0); GFR 90.1; POTASSIUM 3.3 mmol/L (3.5-5.1)
[2021-04-30 10:50] LABS: ALBUMIN 3.1 g/dL (3.4-5.0); TOTAL BILIRUBIN 0.2 mg/dL (0.2-1.0); TOTAL PROTEIN 6.1 g/dL (6.4-8.2)
== END ==
LOC: ONCLAB 10:01
PROVIDERS: ATTEND Physician Assistant
DX: C34.02 Malignant neoplasm of left main bronchus (principal)
CPT/HCPCS: 36415; 80053; 83615; 85025

== ENCOUNTER → 2021-05-07 | Outpatient (CLI) | payer BC ==
[2021-04-25 10:16] VITALS: BP 103/52
[2021-05-07 13:25] LABS: BASO % 1 % (0-3); EOS # 0.1 x10^3/uL (0.0-0.7); EOS % 1 % (0-3); HEMATOCRIT 39.6 % (36.0-47.0); HEMOGLOBIN 13.7 g/dL (12.0-15.5); LYMPH # 2.6 x10^3/uL (1.0-4.8); LYMPH % 31 % (24-48); MEAN CORPUSCULAR HEMOGLOBIN 34 pg (25-35); MEAN CORPUSCULAR HGB CONC 35 g/dL (31-37); MEAN CORPUSCULAR VOLUME 100 fL (79-100); MONO # 0.6 x10^3/uL (0.0-1.1); MONO % 7 % (0-9); NEUT # 5.1 x10^3/uL (1.8-7.7); NEUT % 60 % (31-73); PLATELET COUNT 168 x10^3/uL (140-400); RED BLOOD COUNT 3.98 x10^6/uL (3.50-5.40); RED CELL DISTRIBUTION WIDTH 13.1 % (11.5-14.5); WHITE BLOOD COUNT 8.5 x10^3/uL (4.0-11.0)
[2021-05-07 13:31] LABS: CALCIUM 8.8 mg/dL (8.5-10.1); CREATININE 0.7 mg/dL (0.6-1.0); GFR 90.1; POTASSIUM 3.9 mmol/L (3.5-5.1)
[2021-05-07 13:36] LABS: ALBUMIN 3.6 g/dL (3.4-5.0); ALBUMIN/GLOBULIN RATIO 1.1 (1.0-1.7); TOTAL BILIRUBIN 0.1 mg/dL (0.2-1.0); TOTAL PROTEIN 6.9 g/dL (6.4-8.2)
[2021-05-07 14:17] LABS: % ATYL 1 % (0-0); % BANDS 9 % (0-9); % EOS 1 % (0-5); % LYMPHS 31 % (24-48); % METAS 2 % (0-0); % MONOS 6 % (0-10); % SEGS 50 % (35-66); PLT ESTIMATE ADEQUATE (ADEQUATE)
== END ==
LOC: ONCLAB 12:22
PROVIDERS: ATTEND Internal Medicine Hematology & Oncology
DX: C34.02 Malignant neoplasm of left main bronchus (principal)
CPT/HCPCS: 36415; 80053; 83615; 85007; 85025

== ENCOUNTER → 2021-05-10 | Outpatient (CLI) | payer BC ==
[2021-04-25 10:16] VITALS: BP 103/52
--- NOTE | 2021-05-10 12:00 | RAD ---
Exam description: NM PET/CT SKULL BASE TO MID THIGH Date of service: 05/10/2021 9:25 AM Clinical history: 46 years-old Female with Reason: / Spl. Instructions: / History: . Comparison: CT angiogram chest from 04/07/2021 Technique: The patient has a measured blood glucose level of 94.0 mg/dL at the time of radiopharmacue tical injection. The patient was injected with 14.57 mCi of 18F-FDg intravenously and [facility] for approximately extending minutes for the uptake phase of the examination. The patient was then placed in the PET/CT scanner and images were obtained from the top of the skull thro ugh the upper thighs. CT images were used primarily for attenuation correction and localization. The attenuated corrected and non corrected PET, CT, and fused PET/CT images were reviewed at the [facility] work station. Findings: HEAD/NECK: Normal symmetric physiologic activity is identified within the extraocular muscles and bra in. No abnormal radiotracer activity is identified within the head and neck. No abnormally enlarged l ymph nodes are evident. CHEST: There is a large left hilar mass measuring approximately 2.7 cm, SUV max up to 5.5. This appea rs improved since the prior CT scan. There is a 1.3 cm left lower lobe mildly hypermetabolic nodule, SUV max up to 2.7. There are 2 approximately 1.5 cm hypermetabolic lymph nodes in the left axilla, ANDERSEN V max measuring 8.1 and 6.2 respectively. Pleural-based soft tissue abnormality in the left upper lob e anteriorly demonstrates SUV max up between 2.8 and 3.2. ABDOMEN/PELVIS: There is normal metabolic activity within the liver, spleen, kidneys, collecting syst em, and bowel. No abnormal lymphadenopathy or hypermetabolic activity is identified. SKELETAL STRUCTURES: There are 2 areas of mild increased activity in the left fourth and fifth ribs a t the costochondral junction, SUV max up to 2. There is no bony lytic lesion. Impression: 2.7 cm left hilar mass appears smaller as compared to the prior study, SUV max up to 5.5 consistent w ith primary pulmonary neoplasm. Mildly hypermetabolic soft tissue abnormality and pleural-based nodul es in the anterior left upper lobe may be related to extension of malignancy or post obstructive/infl ammatory changes. Attention on follow-up exams. At least 2 hypermetabolic left axillary lymph node presumed metastatic. Mildly increased activity in the anterior left fourth and fifth rib at the costochondral junction wit hout associated bony lesion. This may be associated to costochondritis, however metastasis is not exc luded. PQRS Compliance Statement: One or more of the following individualized dose reduction techniques were utilized for this examinat ion: 1. Automated exposure control 2. Adjustment of the mA and/or kV according to patient size 3. Use of iterative reconstruction technique Electronically signed by: Alondra Maldonado MD (05/10/2021 11:58 AM) [id number]
== END ==
LOC: PETSC 09:03
PROVIDERS: ATTEND Radiology Radiation Oncology
DX: C34.02 Malignant neoplasm of left main bronchus (principal)
CPT/HCPCS: 78815; A9552

== ENCOUNTER → 2021-05-20 | Outpatient (CLI) | payer BC ==
[2021-04-25 10:16] VITALS: BP 103/52
[2021-05-20 08:59] LABS: BASO # 0.1 x10^3/uL (0.0-0.2); BASO % 1 % (0-3); EOS # 0.1 x10^3/uL (0.0-0.7); EOS % 1 % (0-3); HEMATOCRIT 39.3 % (36.0-47.0); HEMOGLOBIN 13.6 g/dL (12.0-15.5); LYMPH # 1.8 x10^3/uL (1.0-4.8); LYMPH % 22 % (24-48); MEAN CORPUSCULAR HEMOGLOBIN 34 pg (25-35); MEAN CORPUSCULAR HGB CONC 35 g/dL (31-37); MEAN CORPUSCULAR VOLUME 99 fL (79-100); MONO # 0.7 x10^3/uL (0.0-1.1); MONO % 9 % (0-9); NEUT # 5.3 x10^3/uL (1.8-7.7); NEUT % 66 % (31-73); PLATELET COUNT 369 x10^3/uL (140-400); RED BLOOD COUNT 3.98 x10^6/uL (3.50-5.40); RED CELL DISTRIBUTION WIDTH 13.7 % (11.5-14.5)
[2021-05-20 09:15] LABS: CALCIUM 8.7 mg/dL (8.5-10.1); CREATININE 0.8 mg/dL (0.6-1.0); GFR 77.2
[2021-05-20 09:23] LABS: ALBUMIN 3.3 g/dL (3.4-5.0); ALBUMIN/GLOBULIN RATIO 0.9 (1.0-1.7); TOTAL BILIRUBIN 0.5 mg/dL (0.2-1.0); TOTAL PROTEIN 6.8 g/dL (6.4-8.2)
== END ==
LOC: ONCLAB 08:18
PROVIDERS: ATTEND Internal Medicine Hematology & Oncology
DX: C34.02 Malignant neoplasm of left main bronchus (principal)
CPT/HCPCS: 36415; 80053; 83615; 85025

== ENCOUNTER → 2021-05-29 | Outpatient (CLI) | payer BC ==
[2021-04-25 10:16] VITALS: BP 103/52
[2021-05-29 11:29] LABS: BASO % 1 % (0-3); EOS # 0.1 x10^3/uL (0.0-0.7); EOS % 3 % (0-3); HEMATOCRIT 34.1 % (36.0-47.0); HEMOGLOBIN 11.7 g/dL (12.0-15.5); LYMPH # 0.9 x10^3/uL (1.0-4.8); LYMPH % 25 % (24-48); MEAN CORPUSCULAR HEMOGLOBIN 34 pg (25-35); MEAN CORPUSCULAR HGB CONC 34 g/dL (31-37); MEAN CORPUSCULAR VOLUME 100 fL (79-100); MONO # 0.1 x10^3/uL (0.0-1.1); MONO % 4 % (0-9); NEUT # 2.5 x10^3/uL (1.8-7.7); NEUT % 67 % (31-73); PLATELET COUNT 177 x10^3/uL (140-400); RED CELL DISTRIBUTION WIDTH 13.3 % (11.5-14.5); WHITE BLOOD COUNT 3.7 x10^3/uL (4.0-11.0)
[2021-05-29 11:31] LABS: CALCIUM 8.5 mg/dL (8.5-10.1); CREATININE 0.7 mg/dL (0.6-1.0); GFR 90.1; POTASSIUM 3.9 mmol/L (3.5-5.1)
[2021-05-29 11:40] LABS: ALBUMIN 3.2 g/dL (3.4-5.0); TOTAL BILIRUBIN 0.3 mg/dL (0.2-1.0); TOTAL PROTEIN 6.4 g/dL (6.4-8.2)
== END ==
LOC: ONCLAB 09:56
PROVIDERS: ATTEND Physician Assistant
DX: C34.02 Malignant neoplasm of left main bronchus (principal)
CPT/HCPCS: 36415; 80053; 83615; 85025

== ENCOUNTER → 2021-06-05 | Outpatient (CLI) | payer BC ==
[2021-04-25 10:16] VITALS: BP 103/52
[2021-06-05 13:18] LABS: BASO % 1 % (0-3); EOS # 0.1 x10^3/uL (0.0-0.7); EOS % 2 % (0-3); HEMATOCRIT 37.7 % (36.0-47.0); HEMOGLOBIN 13.1 g/dL (12.0-15.5); LYMPH # 1.2 x10^3/uL (1.0-4.8); LYMPH % 33 % (24-48); MEAN CORPUSCULAR HEMOGLOBIN 35 pg (25-35); MEAN CORPUSCULAR HGB CONC 35 g/dL (31-37); MEAN CORPUSCULAR VOLUME 101 fL (79-100); MONO # 0.6 x10^3/uL (0.0-1.1); MONO % 16 % (0-9); NEUT # 1.8 x10^3/uL (1.8-7.7); NEUT % 49 % (31-73); PLATELET COUNT 188 x10^3/uL (140-400); RED BLOOD COUNT 3.74 x10^6/uL (3.50-5.40); RED CELL DISTRIBUTION WIDTH 14.5 % (11.5-14.5); WHITE BLOOD COUNT 3.8 x10^3/uL (4.0-11.0)
[2021-06-05 13:30] LABS: CREATININE 0.9 mg/dL (0.6-1.0); GFR 67.4; POTASSIUM 4.1 mmol/L (3.5-5.1)
[2021-06-05 13:37] LABS: ALBUMIN 3.7 g/dL (3.4-5.0); ALBUMIN/GLOBULIN RATIO 1.1 (1.0-1.7); TOTAL BILIRUBIN 0.2 mg/dL (0.2-1.0); TOTAL PROTEIN 7.2 g/dL (6.4-8.2)
[2021-06-05 14:17] LABS: % BANDS 2 % (0-9); % BASOS 1 % (0-3); % EOS 2 % (0-5); % LYMPHS 41 % (24-48); % METAS 2 % (0-0); % MONOS 13 % (0-10); % MYELOS 1 % (0-0); % SEGS 38 % (35-66); PLT ESTIMATE ADEQUATE (ADEQUATE); POLYCHROMASIA SLIGHT
[2021-06-05 14:19] LABS: TOXIC GRANULATION SLIGHT
== END ==
LOC: ONCLAB 12:30
PROVIDERS: ATTEND Physician Assistant
DX: C34.02 Malignant neoplasm of left main bronchus (principal)
CPT/HCPCS: 36415; 80053; 83615; 85007; 85025

== ENCOUNTER → 2021-06-05 | Outpatient (CLI) | payer BC ==
[2021-04-25 10:16] VITALS: BP 103/52
--- NOTE | 2021-06-05 12:28 | RAD ---
EXAM: Chest, 2 views. HISTORY: Cough. COMPARISON: 04/07/2021 FINDINGS: 2 views of the chest are obtained. There is slight decreased right suprahilar opacity. Ther e is no pleural effusion or pneumothorax. The heart is normal in size. There is a right chest wall po rt catheter with the tip overlying the expected location of the superior cavoatrial junction. IMPRESSION: 1. Slight decreased left suprahilar opacity, better characterized on the recent PET/CT dated 1. This favors interval treatment response. 2. No acute pulmonary finding. Electronically signed by: Alyson Ledesma MD (06/05/2021 12:26 PM) [id number]
== END ==
LOC: RAD 11:44
PROVIDERS: ATTEND Physician Assistant
DX: C34.02 Malignant neoplasm of left main bronchus (principal)
CPT/HCPCS: 71046

== ENCOUNTER → 2021-06-10 | Outpatient (CLI) | payer BC ==
[2021-04-25 10:16] VITALS: BP 103/52
[2021-06-10 09:46] LABS: BASO # 0.1 x10^3/uL (0.0-0.2); BASO % 1 % (0-3); CALCIUM 8.4 mg/dL (8.5-10.1); CREATININE 0.8 mg/dL (0.6-1.0); EOS # 0.1 x10^3/uL (0.0-0.7); EOS % 1 % (0-3); GFR 77.2; HEMATOCRIT 38.4 % (36.0-47.0); HEMOGLOBIN 13.1 g/dL (12.0-15.5); LYMPH % 19 % (24-48); MEAN CORPUSCULAR HEMOGLOBIN 35 pg (25-35); MEAN CORPUSCULAR HGB CONC 34 g/dL (31-37); MEAN CORPUSCULAR VOLUME 101 fL (79-100); MONO # 0.5 x10^3/uL (0.0-1.1); MONO % 9 % (0-9); NEUT # 3.5 x10^3/uL (1.8-7.7); NEUT % 69 % (31-73); PLATELET COUNT 296 x10^3/uL (140-400); POTASSIUM 4.2 mmol/L (3.5-5.1); RED CELL DISTRIBUTION WIDTH 14.9 % (11.5-14.5); WHITE BLOOD COUNT 5.1 x10^3/uL (4.0-11.0)
[2021-06-10 09:53] LABS: ALBUMIN 3.5 g/dL (3.4-5.0); TOTAL BILIRUBIN 0.2 mg/dL (0.2-1.0); TOTAL PROTEIN 6.9 g/dL (6.4-8.2)
== END ==
LOC: ONCLAB 09:18
PROVIDERS: ATTEND Internal Medicine Hematology & Oncology
DX: C34.02 Malignant neoplasm of left main bronchus (principal)
CPT/HCPCS: 36415; 80053; 83615; 85025

== ENCOUNTER → 2021-06-17 | Outpatient (CLI) | payer BC ==
[2021-04-25 10:16] VITALS: BP 103/52
[2021-06-17 11:06] LABS: BASO % 0 % (0-3); EOS % 1 % (0-3); HEMATOCRIT 33.9 % (36.0-47.0); HEMOGLOBIN 11.9 g/dL (12.0-15.5); LYMPH # 0.4 x10^3/uL (1.0-4.8); LYMPH % 6 % (24-48); MEAN CORPUSCULAR HEMOGLOBIN 35 pg (25-35); MEAN CORPUSCULAR HGB CONC 35 g/dL (31-37); MEAN CORPUSCULAR VOLUME 101 fL (79-100); MONO % 0 % (0-9); NEUT % 93 % (31-73); PLATELET COUNT 244 x10^3/uL (140-400); RED BLOOD COUNT 3.37 x10^6/uL (3.50-5.40); RED CELL DISTRIBUTION WIDTH 15.1 % (11.5-14.5); WHITE BLOOD COUNT 6.5 x10^3/uL (4.0-11.0)
[2021-06-17 11:21] LABS: CALCIUM 8.4 mg/dL (8.5-10.1); CREATININE 0.7 mg/dL (0.6-1.0); GFR 90.1; POTASSIUM 3.7 mmol/L (3.5-5.1)
[2021-06-17 11:33] LABS: ALBUMIN 3.2 g/dL (3.4-5.0); TOTAL BILIRUBIN 0.4 mg/dL (0.2-1.0); TOTAL PROTEIN 6.5 g/dL (6.4-8.2)
== END ==
LOC: ONCLAB 09:40
PROVIDERS: ATTEND Internal Medicine Hematology & Oncology
DX: C34.02 Malignant neoplasm of left main bronchus (principal)
CPT/HCPCS: 36415; 80053; 83615; 85025

== ENCOUNTER → 2021-06-24 | Outpatient (CLI) | payer BC ==
[2021-04-25 10:16] VITALS: BP 103/52
[2021-06-24 09:55] LABS: BASO % 2 % (0-3); EOS % 3 % (0-3); HEMATOCRIT 33.2 % (36.0-47.0); HEMOGLOBIN 11.5 g/dL (12.0-15.5); LYMPH # 0.4 x10^3/uL (1.0-4.8); LYMPH % 29 % (24-48); MEAN CORPUSCULAR HEMOGLOBIN 35 pg (25-35); MEAN CORPUSCULAR HGB CONC 35 g/dL (31-37); MEAN CORPUSCULAR VOLUME 102 fL (79-100); MONO # 0.1 x10^3/uL (0.0-1.1); MONO % 10 % (0-9); NEUT # 0.7 x10^3/uL (1.8-7.7); NEUT % 57 % (31-73); PLATELET COUNT 60 x10^3/uL (140-400); RED BLOOD COUNT 3.26 x10^6/uL (3.50-5.40)
[2021-06-24 10:01] LABS: CALCIUM 8.5 mg/dL (8.5-10.1); CREATININE 0.8 mg/dL (0.6-1.0); GFR 77.2; POTASSIUM 3.9 mmol/L (3.5-5.1)
[2021-06-24 10:07] LABS: ALBUMIN 3.4 g/dL (3.4-5.0); ALBUMIN/GLOBULIN RATIO 1.1 (1.0-1.7); TOTAL BILIRUBIN 0.3 mg/dL (0.2-1.0); TOTAL PROTEIN 6.5 g/dL (6.4-8.2)
[2021-06-24 10:15] LABS: WHITE BLOOD COUNT 1.3 x10^3/uL (4.0-11.0)
[2021-06-24 13:15] LABS: % EOS 4 % (0-5); % LYMPHS 31 % (24-48); % MONOS 11 % (0-10); % SEGS 54 % (35-66); PLT ESTIMATE DECREASED (ADEQUATE)
== END ==
LOC: ONCLAB 09:30
PROVIDERS: ATTEND Internal Medicine Hematology & Oncology
DX: C34.02 Malignant neoplasm of left main bronchus (principal)
CPT/HCPCS: 36415; 80053; 83615; 85007; 85025

== ENCOUNTER → 2021-07-01 | Outpatient (CLI) | payer BC ==
[2021-04-25 10:16] VITALS: BP 103/52
[2021-07-01 10:46] LABS: BASO % 0 % (0-3); EOS # 0.1 x10^3/uL (0.0-0.7); EOS % 1 % (0-3); HEMATOCRIT 33.3 % (36.0-47.0); HEMOGLOBIN 11.6 g/dL (12.0-15.5); LYMPH # 0.7 x10^3/uL (1.0-4.8); LYMPH % 9 % (24-48); MEAN CORPUSCULAR HEMOGLOBIN 35 pg (25-35); MEAN CORPUSCULAR HGB CONC 35 g/dL (31-37); MEAN CORPUSCULAR VOLUME 102 fL (79-100); MONO # 0.8 x10^3/uL (0.0-1.1); MONO % 9 % (0-9); NEUT # 6.8 x10^3/uL (1.8-7.7); NEUT % 81 % (31-73); PLATELET COUNT 173 x10^3/uL (140-400); RED BLOOD COUNT 3.27 x10^6/uL (3.50-5.40); RED CELL DISTRIBUTION WIDTH 16.2 % (11.5-14.5); WHITE BLOOD COUNT 8.3 x10^3/uL (4.0-11.0)
[2021-07-01 11:01] LABS: CALCIUM 8.5 mg/dL (8.5-10.1); CREATININE 0.8 mg/dL (0.6-1.0); GFR 77.2; POTASSIUM 3.7 mmol/L (3.5-5.1)
[2021-07-01 11:06] LABS: ALBUMIN 3.4 g/dL (3.4-5.0); TOTAL BILIRUBIN 0.2 mg/dL (0.2-1.0); TOTAL PROTEIN 6.7 g/dL (6.4-8.2)
[2021-07-01 12:24] LABS: % BANDS 19 % (0-9); % LYMPHS 9 % (24-48); % MONOS 6 % (0-10); % SEGS 66 % (35-66); NUCLEATED RBC 1
[2021-07-01 12:27] LABS: PLT ESTIMATE ADEQUATE (ADEQUATE)
== END ==
LOC: ONCLAB 10:37
PROVIDERS: ATTEND Physician Assistant
DX: C34.02 Malignant neoplasm of left main bronchus (principal)
CPT/HCPCS: 36415; 80053; 83615; 85007; 85025

== ENCOUNTER → 2021-07-09 | Outpatient (CLI) | payer BC ==
[2021-04-25 10:16] VITALS: BP 103/52
[2021-07-09 10:00] LABS: BASO % 0 % (0-3); EOS % 0 % (0-3); HEMATOCRIT 31.2 % (36.0-47.0); LYMPH # 0.4 x10^3/uL (1.0-4.8); LYMPH % 12 % (24-48); MEAN CORPUSCULAR HEMOGLOBIN 35 pg (25-35); MEAN CORPUSCULAR HGB CONC 35 g/dL (31-37); MEAN CORPUSCULAR VOLUME 101 fL (79-100); MONO # 0.6 x10^3/uL (0.0-1.1); MONO % 18 % (0-9); NEUT # 2.2 x10^3/uL (1.8-7.7); NEUT % 70 % (31-73); PLATELET COUNT 222 x10^3/uL (140-400); RED CELL DISTRIBUTION WIDTH 15.9 % (11.5-14.5); WHITE BLOOD COUNT 3.1 x10^3/uL (4.0-11.0)
[2021-07-09 10:07] LABS: CALCIUM 8.4 mg/dL (8.5-10.1); CREATININE 0.8 mg/dL (0.6-1.0); GFR 77.2; POTASSIUM 3.5 mmol/L (3.5-5.1)
[2021-07-09 10:14] LABS: ALBUMIN 3.3 g/dL (3.4-5.0); TOTAL BILIRUBIN 0.3 mg/dL (0.2-1.0); TOTAL PROTEIN 6.5 g/dL (6.4-8.2)
[2021-07-09 11:25] LABS: % BANDS 7 % (0-9); % LYMPHS 22 % (24-48); % MONOS 12 % (0-10); % SEGS 59 % (35-66); PLT ESTIMATE ADEQUATE (ADEQUATE)
== END ==
LOC: ONCLAB 09:29
PROVIDERS: ATTEND Physician Assistant
DX: C34.02 Malignant neoplasm of left main bronchus (principal)
CPT/HCPCS: 36415; 80053; 83615; 85007; 85025

== ENCOUNTER → 2021-07-16 | Outpatient (CLI) | payer BC ==
[2021-04-25 10:16] VITALS: BP 103/52
[2021-07-16 09:58] LABS: BASO % 0 % (0-3); EOS % 0 % (0-3); HEMATOCRIT 32.8 % (36.0-47.0); HEMOGLOBIN 11.1 g/dL (12.0-15.5); LYMPH # 0.7 x10^3/uL (1.0-4.8); LYMPH % 14 % (24-48); MEAN CORPUSCULAR HEMOGLOBIN 35 pg (25-35); MEAN CORPUSCULAR HGB CONC 34 g/dL (31-37); MEAN CORPUSCULAR VOLUME 102 fL (79-100); MONO # 0.7 x10^3/uL (0.0-1.1); MONO % 13 % (0-9); NEUT # 3.8 x10^3/uL (1.8-7.7); NEUT % 72 % (31-73); PLATELET COUNT 99 x10^3/uL (140-400); RED BLOOD COUNT 3.21 x10^6/uL (3.50-5.40); RED CELL DISTRIBUTION WIDTH 16.8 % (11.5-14.5); WHITE BLOOD COUNT 5.3 x10^3/uL (4.0-11.0)
[2021-07-16 10:19] LABS: CALCIUM 8.5 mg/dL (8.5-10.1); CREATININE 0.8 mg/dL (0.6-1.0); GFR 77.2; POTASSIUM 3.8 mmol/L (3.5-5.1)
[2021-07-16 10:28] LABS: ALBUMIN 3.5 g/dL (3.4-5.0); TOTAL BILIRUBIN 0.2 mg/dL (0.2-1.0); TOTAL PROTEIN 6.9 g/dL (6.4-8.2)
[2021-07-16 12:36] LABS: % ATYL 1 % (0-0); % BANDS 10 % (0-9); % BASOS 1 % (0-3); % EOS 1 % (0-5); % LYMPHS 11 % (24-48); % METAS 1 % (0-0); % MONOS 11 % (0-10); % SEGS 64 % (35-66); PLT ESTIMATE DECREASED (ADEQUATE)
[2021-07-16 12:37] LABS: ANISOCYTOSIS SLIGHT; OVALOCYTES FEW; POLYCHROMASIA PRESENT; TEAR DROP CELLS OCC
== END ==
LOC: ONCLAB 09:14
PROVIDERS: ATTEND Internal Medicine Hematology & Oncology
DX: C34.02 Malignant neoplasm of left main bronchus (principal)
CPT/HCPCS: 36415; 80053; 83615; 85007; 85025

== ENCOUNTER → 2021-07-23 | Outpatient (CLI) | payer BC ==
[2021-04-25 10:16] VITALS: BP 103/52
[~2021-07-23] MED LIST changes: +GADOTERATE 7.5 MMOL/15ML VIAL. IVP ONE
--- NOTE | 2021-07-23 12:48 | RAD ---
MRI BRAIN WO+W Date: 07/23/2021 9:19 AM Indication: SMALL CELL LUNG CANCER,STAGING Comparison: 04/22/2021. Technique: Multiplanar multisequence MRI of the brain was performed with and without intravenous cont rast using the standard protocol. 15 cc Clariscan contrast was administered intravenously during the exam. Findings: No acute infarct. No acute or chronic hemorrhage. The ventricles are normal in size and configuration without hydrocephalus. Right parietal developmental venous anomaly. The scalp and calvarium are normal. The pituitary and sella are normal. Inferior descent of the cereb ellar tonsils, extending 9 mm below the foramen magnum. Unchanged upper cord syrinx measuring 5 mm in diameter and 11 mm craniocaudad. The visualized orbits and globes are normal. The visualized paranasal sinuses are clear. The mastoid air cells are clear. Normal flow voids within the vertebral, basilar, and internal carotid arteries indicating patency. IMPRESSION: 1. No evidence of intracranial metastatic disease. 2. Stable findings of Chiari malformation with cervical cord syrinx. Electronically signed by: Marc Lee MD (07/23/2021 12:46 PM) [facility]
== END ==
LOC: MRI 09:32
PROVIDERS: ATTEND Internal Medicine Hematology & Oncology
DX: C34.02 Malignant neoplasm of left main bronchus (principal)
CPT/HCPCS: 70553; A9575

== ENCOUNTER → 2021-07-24 | Outpatient (CLI) | payer BC ==
[2021-04-25 10:16] VITALS: BP 103/52
[~2021-07-24] MED LIST changes: -GADOTERATE 7.5 MMOL/15ML VIAL. IVP ONE
[2021-07-24 09:54] LABS: BASO % 1 % (0-3); EOS # 0.1 x10^3/uL (0.0-0.7); EOS % 2 % (0-3); HEMATOCRIT 34.1 % (36.0-47.0); HEMOGLOBIN 11.5 g/dL (12.0-15.5); LYMPH % 26 % (24-48); MEAN CORPUSCULAR HEMOGLOBIN 35 pg (25-35); MEAN CORPUSCULAR HGB CONC 34 g/dL (31-37); MEAN CORPUSCULAR VOLUME 103 fL (79-100); MONO # 0.6 x10^3/uL (0.0-1.1); MONO % 15 % (0-9); NEUT # 2.3 x10^3/uL (1.8-7.7); NEUT % 56 % (31-73); PLATELET COUNT 317 x10^3/uL (140-400); RED BLOOD COUNT 3.31 x10^6/uL (3.50-5.40); RED CELL DISTRIBUTION WIDTH 18.5 % (11.5-14.5); WHITE BLOOD COUNT 4.1 x10^3/uL (4.0-11.0)
[2021-07-24 10:17] LABS: CALCIUM 8.8 mg/dL (8.5-10.1); CREATININE 0.8 mg/dL (0.6-1.0); GFR 77.2; POTASSIUM 4.2 mmol/L (3.5-5.1)
[2021-07-24 10:23] LABS: ALBUMIN 3.9 g/dL (3.4-5.0); ALBUMIN/GLOBULIN RATIO 1.2 (1.0-1.7); TOTAL BILIRUBIN 0.3 mg/dL (0.2-1.0); TOTAL PROTEIN 7.2 g/dL (6.4-8.2)
== END ==
LOC: ONCLAB 09:37
PROVIDERS: ATTEND Physician Assistant
DX: C34.02 Malignant neoplasm of left main bronchus (principal)
CPT/HCPCS: 36415; 80053; 83615; 85025

== ENCOUNTER → 2021-07-31 | Outpatient (CLI) | payer BC ==
[2021-04-25 10:16] VITALS: BP 103/52
[~2021-07-31] MED LIST changes: +HEPARIN PF 500 UNIT/5 ML DISP.SYRIN. IVP ONE; +IOHEXOL 240 MG/ML 50ML VIAL. PO ONE; +IOHEXOL 300 MG/ML 100ML VIAL. IV ONE
--- NOTE | 2021-07-31 14:35 | RAD ---
EXAM: CT Chest, Abdomen and Pelvis with IV contrast CLINICAL HISTORY: SMALL CELL LUNG CANCER COMPARISON: 04/22/2020 10/07/2020 TECHNIQUE: Helical CT of the chest, abdomen and pelvis was performed following the administration of intravenous contrast. Axial, coronal and sagittal reformatted images were generated. ---PQRS compliance statement - One or more of the following individualized dose reduction techniques were utilized for this study: 1. Automated exposure control 2. Adjustment of the mA and/or kV according to patient size 3. Use of iterative reconstruction technique--- FINDINGS: Chest: Heart is not enlarged. No pericardial effusion. No pleural effusion. No pneumothorax. Right port tip terminates within the right atrium. No pleural effusion. No pneumothorax Linear opacities right lower lobe and left lower lobe. Bandlike opacities right upper lobe likely pos ttreatment change. Focal nodularity in this region measures 9 x 4 mm. Small left hilar lymph nodes me asuring 5 mm short axis. No mediastinal lymphadenopathy. No axillary lymphadenopathy. Abdomen and Pelvis: Enhancing hepatic lesions, grossly stable in size. Calcified gallstones are seen within the gallbladd er. No CT evidence for acute cholecystitis. Appendix is normal. Spleen is normal in appearance. Adren al glands are unremarkable. Symmetric nephrograms. No focal renal lesion. No hydronephrosis. No hydro ureter. Bladder is unremarkable. Aorta is normal in caliber. Trace pelvic ascites. Colonic diverticula are seen. No evidence for acute diverticulitis. Moderate colonic stool content is seen. No bowel obstruction. Trace fat-containing p eriumbilical hernia. Scattered sclerotic foci are seen throughout the osseous structures, for example in the S2 level benita ures 16 mm. Community Engagement Representative left iliac sclerotic lesion measures 14 mm. Additional sclerotic lesions a re seen within the spine. IMPRESSION: 1. Posterior treatment changes are seen in left upper lobe with bandlike opacities. The left upper l obe mass seen on prior CT has significantly decreased in size, with small residual nodularity. Recomm end close attention on follow up. 2. Scattered sclerotic lesions likely metastasis. 3. Previously seen left hilar and axillary lymphadenopathy have significantly decreased in size, sug gesting favorable response. 4. Enhancing hepatic lesions are nonspecific, could be hemangiomas however metastasis or other prima ry hepatic lesion could have this appearance. This can be further assessed by MRI if not previously p erformed. 5. Cholelithiasis without CT evidence for acute cholecystitis. 6. Trace pelvic ascites Electronically signed by: Viktor Rm MD (07/31/2021 2:33 PM) [facility]
== END ==
LOC: CT 09:33
PROVIDERS: ATTEND Physician Assistant
DX: C34.02 Malignant neoplasm of left main bronchus (principal); M89.9 Disorder of bone, unspecified; K80.20 Calculus of gallbladder without cholecystitis without obstruction; R18.8 Other ascites; R59.0 Localized enlarged lymph nodes; K57.30 Diverticulosis of large intestine without perforation or abscess without bleeding; K76.89 Other specified diseases of liver; R91.8 Other nonspecific abnormal finding of lung field
CPT/HCPCS: 71260; 74177; J1642; Q9966; Q9967

== ENCOUNTER → 2021-08-08 | Outpatient (CLI) | payer BC ==
[2021-04-25 10:16] VITALS: BP 103/52
[~2021-08-08] MED LIST changes: -HEPARIN PF 500 UNIT/5 ML DISP.SYRIN. IVP ONE; -IOHEXOL 240 MG/ML 50ML VIAL. PO ONE; -IOHEXOL 300 MG/ML 100ML VIAL. IV ONE
[2021-08-08 09:55] LABS: BASO % 1 % (0-3); EOS # 0.4 x10^3/uL (0.0-0.7); EOS % 6 % (0-3); HEMATOCRIT 38.6 % (36.0-47.0); LYMPH # 1.2 x10^3/uL (1.0-4.8); LYMPH % 20 % (24-48); MEAN CORPUSCULAR HEMOGLOBIN 35 pg (25-35); MEAN CORPUSCULAR HGB CONC 34 g/dL (31-37); MEAN CORPUSCULAR VOLUME 105 fL (79-100); MONO # 0.5 x10^3/uL (0.0-1.1); MONO % 9 % (0-9); NEUT # 3.7 x10^3/uL (1.8-7.7); NEUT % 64 % (31-73); PLATELET COUNT 296 x10^3/uL (140-400); RED BLOOD COUNT 3.69 x10^6/uL (3.50-5.40); RED CELL DISTRIBUTION WIDTH 17.3 % (11.5-14.5); WHITE BLOOD COUNT 5.8 x10^3/uL (4.0-11.0)
[2021-08-08 10:00] LABS: CALCIUM 8.9 mg/dL (8.5-10.1); CREATININE 0.9 mg/dL (0.6-1.0); GFR 67.4; POTASSIUM 3.9 mmol/L (3.5-5.1)
[2021-08-08 10:06] LABS: ALBUMIN/GLOBULIN RATIO 1.3 (1.0-1.7); TOTAL BILIRUBIN 0.5 mg/dL (0.2-1.0); TOTAL PROTEIN 7.1 g/dL (6.4-8.2)
== END ==
LOC: ONCLAB 10:47
PROVIDERS: ATTEND Internal Medicine Hematology & Oncology
DX: C34.02 Malignant neoplasm of left main bronchus (principal)
CPT/HCPCS: 36415; 80053; 83615; 85025

== ENCOUNTER → 2021-08-19 | Outpatient (CLI) | payer BC ==
[2021-04-25 10:16] VITALS: BP 103/52
--- NOTE | 2021-08-19 17:12 | RAD ---
Whole-body bone scan Clinical indications: Small cell lung cancer. COMPARISON: PET scan dated May 10, 2021. CT study chest, abdomen and pelvis dated July 31. TECHNIQUE: After IV infusion of 25.1 mCi of technetium 99m MDP, delayed anterior and posterior planar images of the whole body were performed. FINDINGS: Bilateral renal function is evident. Activity involving both AC joints most likely is degen erative. There is a focus of activity seen involving the proximal right humerus. There is activity se en involving the left iliac bone adjacent to the SI joint as seen in the anterior image. There are sm all foci of activity seen involving the superior and mid and inferior aspects of the right acetabulum . There is mild activity seen involving the anterior aspect of the superior and midportion of the lef t acetabulum. There is activity seen involving the upper mid sacrum. There are scattered activity see n involving the thoracic and lumbar spine and the sternum. These findings correspond to osseous scler otic lesions seen on the CT study July 31, 2021 consistent with osseous metastatic disease. There is activity seen involving both sternoclavicular joints. Osteosclerotic lesion is seen involving th e medial left clavicle head and the left side of the manubrium on the chest CT consistent with metast atic disease. There is degenerative activity seen involving both knees and ankles. More prominent act ivity is seen involving the posterior distal left tibial epiphysis of the ankle area. This may be deg enerative in nature but osseous metastatic disease cannot be excluded. There is activity seen involvi ng the anterior rib cage bilaterally which could be due to costochondritis given it's bilateral fairl y symmetric nature. There is activity seen involving the region of the ethmoid sinuses. No ethmoid si nus mucosal thickening is seen here on the July 23, 2021 MRI study of the brain. Mucosal thickenin g of the right sphenoid sinus is seen on that study. No obvious mass lesion is seen here on the MRI s tudy to indicate an osseous metastatic disease. 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 This has pr ogressed between PET/CT dated May 10, [address] study of the chest and abdomen and pelvis dated July 31, 2021. Osseous metastatic disease versus degenerative activity seen involving the distal left tibia. Probable costochondritis of the right rib cage anteriorly on both sides. Activity seen involving the ethmoid sinus area. Only finding here on the MRI study of the brain dated July 23, 2021 is mucosal thickening of the right sphenoid sinus. Electronically signed by: Raman Petersen MD (08/19/2021 5:09 PM) [id number]
== END ==
LOC: NM 07:54
PROVIDERS: ATTEND Internal Medicine Hematology & Oncology
DX: C34.02 Malignant neoplasm of left main bronchus (principal); J32.3 Chronic sphenoidal sinusitis
CPT/HCPCS: 78306; A9503

== ENCOUNTER → 2021-08-22 | Outpatient (CLI) | payer BC ==
[2021-04-25 10:16] VITALS: BP 103/52
[2021-08-22 10:09] LABS: BASO % 1 % (0-3); EOS # 0.7 x10^3/uL (0.0-0.7); EOS % 13 % (0-3); HEMATOCRIT 39.4 % (36.0-47.0); HEMOGLOBIN 13.5 g/dL (12.0-15.5); LYMPH # 1.2 x10^3/uL (1.0-4.8); LYMPH % 21 % (24-48); MEAN CORPUSCULAR HEMOGLOBIN 36 pg (25-35); MEAN CORPUSCULAR HGB CONC 34 g/dL (31-37); MEAN CORPUSCULAR VOLUME 106 fL (79-100); MONO # 0.4 x10^3/uL (0.0-1.1); MONO % 7 % (0-9); NEUT # 3.3 x10^3/uL (1.8-7.7); NEUT % 59 % (31-73); PLATELET COUNT 254 x10^3/uL (140-400); RED BLOOD COUNT 3.73 x10^6/uL (3.50-5.40); RED CELL DISTRIBUTION WIDTH 15.4 % (11.5-14.5); WHITE BLOOD COUNT 5.6 x10^3/uL (4.0-11.0)
[2021-08-22 10:18] LABS: CALCIUM 8.3 mg/dL (8.5-10.1); CREATININE 0.8 mg/dL (0.6-1.0); GFR 77.2; POTASSIUM 3.7 mmol/L (3.5-5.1)
[2021-08-22 10:25] LABS: ALBUMIN 3.7 g/dL (3.4-5.0); ALBUMIN/GLOBULIN RATIO 1.2 (1.0-1.7); TOTAL BILIRUBIN 0.5 mg/dL (0.2-1.0); TOTAL PROTEIN 6.8 g/dL (6.4-8.2)
== END ==
LOC: ONCLAB 09:34
PROVIDERS: ATTEND Internal Medicine Hematology & Oncology
DX: C34.02 Malignant neoplasm of left main bronchus (principal)
CPT/HCPCS: 36415; 80053; 85025

== ENCOUNTER → 2021-08-23 | Outpatient (CLI) | payer BC ==
[2021-04-25 10:16] VITALS: BP 103/52
--- NOTE | 2021-08-23 13:36 | RAD ---
EXAMINATION: US DPLX VENOUS EXTREMITY LOWER RT (LOWER EXTREMITY VENOUS ULTRASOUND) CLINICAL HISTORY: Right thigh pain TECHNIQUE: Sonographic grayscale images obtained of the right lower extremity deep venous system with color flow Doppler, compression, and augmentation techniques as indicated. Images obtained and stor ed in a permanent archive. COMPARISON: None FINDINGS: No evidence of absent flow or incompressibility within the common femoral vein, femoral vein, or popl iteal vein. Visualized calf veins appear patent on limited evaluation. IMPRESSION: No evidence of right lower extremity DVT. Electronically signed by: Curtis Honeycutt DO (08/23/2021 1:34 PM) [id number]
== END ==
LOC: US 12:34
PROVIDERS: ATTEND Internal Medicine Hematology & Oncology
DX: I80.00 Phlebitis and thrombophlebitis of superficial vessels of unspecified lower extremity (principal)
CPT/HCPCS: 93971

== ENCOUNTER → 2021-08-28 | Outpatient (CLI) | payer BC ==
[2021-04-25 10:16] VITALS: BP 103/52
[2021-08-28 09:36] LABS: BASO % 1 % (0-3); EOS # 0.5 x10^3/uL (0.0-0.7); EOS % 11 % (0-3); HEMATOCRIT 41.4 % (36.0-47.0); HEMOGLOBIN 13.7 g/dL (12.0-15.5); LYMPH % 20 % (24-48); MEAN CORPUSCULAR HEMOGLOBIN 35 pg (25-35); MEAN CORPUSCULAR HGB CONC 33 g/dL (31-37); MEAN CORPUSCULAR VOLUME 105 fL (79-100); MONO # 0.4 x10^3/uL (0.0-1.1); MONO % 7 % (0-9); NEUT # 2.9 x10^3/uL (1.8-7.7); NEUT % 61 % (31-73); PLATELET COUNT 248 x10^3/uL (140-400); RED BLOOD COUNT 3.92 x10^6/uL (3.50-5.40); RED CELL DISTRIBUTION WIDTH 14.2 % (11.5-14.5); WHITE BLOOD COUNT 4.8 x10^3/uL (4.0-11.0)
[2021-08-28 09:50] LABS: CALCIUM 8.5 mg/dL (8.5-10.1); CREATININE 0.8 mg/dL (0.6-1.0); GFR 77.2; POTASSIUM 3.8 mmol/L (3.5-5.1)
[2021-08-28 09:55] LABS: ALBUMIN 3.8 g/dL (3.4-5.0); ALBUMIN/GLOBULIN RATIO 1.3 (1.0-1.7); TOTAL BILIRUBIN 0.3 mg/dL (0.2-1.0); TOTAL PROTEIN 6.8 g/dL (6.4-8.2)
== END ==
LOC: ONCLAB 09:17
PROVIDERS: ATTEND Physician Assistant
DX: C34.02 Malignant neoplasm of left main bronchus (principal)
CPT/HCPCS: 36415; 80053; 85025

== ENCOUNTER → 2021-09-06 | Outpatient (CLI) | payer BC ==
[2021-04-25 10:16] VITALS: BP 103/52
[2021-09-06 11:00] LABS: CALCIUM 8.5 mg/dL (8.5-10.1); CREATININE 0.8 mg/dL (0.6-1.0); GFR 77.2; POTASSIUM 3.7 mmol/L (3.5-5.1)
[2021-09-06 11:12] LABS: ALBUMIN 3.5 g/dL (3.4-5.0); ALBUMIN/GLOBULIN RATIO 1.2 (1.0-1.7); MAGNESIUM 1.8 mg/dL (1.8-2.4); TOTAL BILIRUBIN 0.3 mg/dL (0.2-1.0); TOTAL PROTEIN 6.5 g/dL (6.4-8.2)
== END ==
LOC: ONCLAB 09:48
PROVIDERS: ATTEND Internal Medicine Hematology & Oncology
DX: Z51.0 Encounter for antineoplastic radiation therapy (principal)
CPT/HCPCS: 36415; 80053; 83735

== ENCOUNTER → 2021-09-11 | Outpatient (CLI) | payer BC ==
[2021-04-25 10:16] VITALS: BP 103/52
[2021-09-11 08:23] LABS: BASO % 0 % (0-3); EOS # 0.1 x10^3/uL (0.0-0.7); EOS % 1 % (0-3); HEMATOCRIT 41.2 % (36.0-47.0); HEMOGLOBIN 14.1 g/dL (12.0-15.5); LYMPH # 0.8 x10^3/uL (1.0-4.8); LYMPH % 13 % (24-48); MEAN CORPUSCULAR HEMOGLOBIN 36 pg (25-35); MEAN CORPUSCULAR HGB CONC 34 g/dL (31-37); MEAN CORPUSCULAR VOLUME 105 fL (79-100); MONO # 0.3 x10^3/uL (0.0-1.1); MONO % 5 % (0-9); NEUT # 5.2 x10^3/uL (1.8-7.7); NEUT % 81 % (31-73); PLATELET COUNT 249 x10^3/uL (140-400); RED BLOOD COUNT 3.92 x10^6/uL (3.50-5.40); RED CELL DISTRIBUTION WIDTH 13.4 % (11.5-14.5); WHITE BLOOD COUNT 6.3 x10^3/uL (4.0-11.0)
[2021-09-11 08:30] LABS: CALCIUM 8.4 mg/dL (8.5-10.1); CREATININE 0.8 mg/dL (0.6-1.0); GFR 77.2; POTASSIUM 3.2 mmol/L (3.5-5.1)
[2021-09-11 08:35] LABS: ALBUMIN 3.7 g/dL (3.4-5.0); TOTAL BILIRUBIN 0.3 mg/dL (0.2-1.0); TOTAL PROTEIN 7.3 g/dL (6.4-8.2)
== END ==
LOC: ONCLAB 08:04
PROVIDERS: ATTEND Internal Medicine Hematology & Oncology
DX: C34.02 Malignant neoplasm of left main bronchus (principal)
CPT/HCPCS: 36415; 80053; 84443; 85025

== ENCOUNTER → 2021-10-02 | Outpatient (CLI) | payer BC ==
[2021-04-25 10:16] VITALS: BP 103/52
[2021-10-02 08:25] LABS: BASO # 0.1 x10^3/uL (0.0-0.2); BASO % 1 % (0-3); EOS # 0.2 x10^3/uL (0.0-0.7); EOS % 5 % (0-3); HEMATOCRIT 42.2 % (36.0-47.0); HEMOGLOBIN 14.5 g/dL (12.0-15.5); LYMPH # 0.9 x10^3/uL (1.0-4.8); LYMPH % 19 % (24-48); MEAN CORPUSCULAR HEMOGLOBIN 35 pg (25-35); MEAN CORPUSCULAR HGB CONC 34 g/dL (31-37); MEAN CORPUSCULAR VOLUME 102 fL (79-100); MONO # 0.3 x10^3/uL (0.0-1.1); MONO % 7 % (0-9); NEUT # 3.2 x10^3/uL (1.8-7.7); NEUT % 68 % (31-73); PLATELET COUNT 235 x10^3/uL (140-400); RED BLOOD COUNT 4.13 x10^6/uL (3.50-5.40); RED CELL DISTRIBUTION WIDTH 12.8 % (11.5-14.5); WHITE BLOOD COUNT 4.7 x10^3/uL (4.0-11.0)
[2021-10-02 08:37] LABS: CALCIUM 8.4 mg/dL (8.5-10.1); CREATININE 0.9 mg/dL (0.6-1.0); GFR 67.4; POTASSIUM 3.9 mmol/L (3.5-5.1)
[2021-10-02 08:50] LABS: ALBUMIN 3.7 g/dL (3.4-5.0); TOTAL BILIRUBIN 0.3 mg/dL (0.2-1.0); TOTAL PROTEIN 7.3 g/dL (6.4-8.2)
== END ==
LOC: ONCLAB 08:08
PROVIDERS: ATTEND Internal Medicine Hematology & Oncology
DX: C34.02 Malignant neoplasm of left main bronchus (principal)
CPT/HCPCS: 36415; 80053; 85025

== ENCOUNTER → 2021-10-08 | Outpatient (CLI) | payer BC ==
[2021-04-25 10:16] VITALS: BP 103/52
[~2021-10-08] MED LIST changes: +GADOTERATE 5 MMOL/10ML VIAL. IVP ONE
--- NOTE | 2021-10-09 08:34 | KCIC ---
EXAM: MRI of the sacrum/posterior pelvis with and without IV contrast CLINICAL HISTORY: Low Back Pain COMPARISON: None TECHNIQUE: Multiplanar, multisequence MRI imaging of the posterior pelvis/SI joints was performed wit h and without IV contrast. FINDINGS: Small volume pelvic ascites. There has been a hysterectomy. No definite pelvic mass is seen along the course of the lumbosacral plexus. Multiple T2 hyperintense, T1 hypointense lesions are seen consistent with metastatic disease in the p wero and lower lumbar spine. For example in the right iliac bone there is a 1.9 x 1.2 cm lesion. A 9 mm lesion at S3 with associated marrow edema in the S2 and S3 levels is seen. SI joints: Cortices are well-defined without erosive changes. Posterior pelvis bony structure: No acute or subacute fracture. No sacrococcygeal dissociation. Presacral soft tissues: Negative presacral inflammatory type changes or fluid collection. Negative dominant mass lesion. IMPRESSION: 1. Multiple bony lesions are seen within the posterior pelvis and lower lumbar spine consistent with metastatic disease. 2. No definite soft tissue mass is seen within the posterior pelvis. No abnormal mass effect on the lumbosacral plexus 3. Small volume pelvic ascites. Electronically signed by: Viktor Rm MD (10/09/2021 8:31 AM) [id number]
--- NOTE | 2021-10-09 09:31 | KCIC ---
MRI LUMBAR SPINE WITHOUT AND WITH IV CONTRAST Date: 10/08/2021 1:25 PM Indication: SMALL CELL LUNG CA. Eval bony mets to L/S spine. Right thigh numbness. Comparison: CT abdomen pelvis 07/31/2021. Technique: Multi-planar multi-weighted magnetic resonance imaging of the lumbar spine was performed w ith and without intravenous contrast using the standard lumbar spine protocol. [address] was administered intravenously during the examination. FINDINGS: There are several osseous metastatic lesions, largest at L4. No epidural extension of tumor. The lumbar spine is normally aligned. No acute fracture. The intervertebral discs are normal. The conus terminates at a normal level. No abnormal signal is seen within the visualized distal spina l cord. No soft tissue abnormality in the visualized abdomen or pelvis. T12-L1: No disc bulge. No facet arthropathy. No significant spinal stenosis or neural foraminal narro wing. L1-L2: No disc bulge. No facet arthropathy. No significant spinal stenosis or neural foraminal narrow ing. L2-L3: No disc bulge. No facet arthropathy. No significant spinal stenosis or neural foraminal narrow ing. L3-L4: No disc bulge. No facet arthropathy. No significant spinal stenosis or neural foraminal narrow ing. L4-L5: No disc bulge. Mild facet arthropathy. No significant spinal stenosis or neural foraminal narr owing. L5-S1: No disc bulge. No facet arthropathy. No significant spinal stenosis or neural foraminal narrow ing. IMPRESSION: 1. Osseous metastatic disease. No epidural extension of tumor. 2. No significant spinal canal stenosis or neural foraminal narrowing. Electronically signed by: Mrac Lee MD (10/09/2021 9:28 AM) [id number]
== END ==
LOC: KCIC MRI 13:07
PROVIDERS: ATTEND Internal Medicine Hematology & Oncology
DX: C79.49 Secondary malignant neoplasm of other parts of nervous system (principal); C34.02 Malignant neoplasm of left main bronchus; R18.8 Other ascites; M48.8X6 Other specified spondylopathies, lumbar region
CPT/HCPCS: 72158; 72197; A9575

== ENCOUNTER → 2021-10-09 | Outpatient (CLI) | payer BC ==
[2021-04-25 10:16] VITALS: BP 103/52
[~2021-10-09] MED LIST changes: -GADOTERATE 5 MMOL/10ML VIAL. IVP ONE
[2021-10-09 08:49] LABS: BASO % 1 % (0-3); EOS # 0.2 x10^3/uL (0.0-0.7); EOS % 5 % (0-3); HEMATOCRIT 41.1 % (36.0-47.0); HEMOGLOBIN 13.9 g/dL (12.0-15.5); LYMPH # 0.5 x10^3/uL (1.0-4.8); LYMPH % 10 % (24-48); MEAN CORPUSCULAR HEMOGLOBIN 34 pg (25-35); MEAN CORPUSCULAR HGB CONC 34 g/dL (31-37); MEAN CORPUSCULAR VOLUME 101 fL (79-100); MONO # 0.5 x10^3/uL (0.0-1.1); MONO % 11 % (0-9); NEUT # 3.4 x10^3/uL (1.8-7.7); NEUT % 73 % (31-73); PLATELET COUNT 219 x10^3/uL (140-400); RED BLOOD COUNT 4.09 x10^6/uL (3.50-5.40); RED CELL DISTRIBUTION WIDTH 12.7 % (11.5-14.5); WHITE BLOOD COUNT 4.6 x10^3/uL (4.0-11.0)
[2021-10-09 09:17] LABS: ALBUMIN 3.8 g/dL (3.4-5.0); ALBUMIN/GLOBULIN RATIO 1.2 (1.0-1.7); CALCIUM 8.5 mg/dL (8.5-10.1); CREATININE 0.7 mg/dL (0.6-1.0); GFR 90.1; POTASSIUM 4.2 mmol/L (3.5-5.1); TOTAL BILIRUBIN 0.4 mg/dL (0.2-1.0); TOTAL PROTEIN 6.9 g/dL (6.4-8.2)
== END ==
LOC: ONCLAB 08:33
PROVIDERS: ATTEND Internal Medicine Hematology & Oncology
DX: C34.02 Malignant neoplasm of left main bronchus (principal)
CPT/HCPCS: 36415; 80053; 85025

== ENCOUNTER → 2021-10-24 | Outpatient (CLI) | payer BC ==
[2021-04-25 10:16] VITALS: BP 103/52
[2021-10-24 08:51] LABS: BASO % 1 % (0-3); EOS # 0.2 x10^3/uL (0.0-0.7); EOS % 3 % (0-3); HEMATOCRIT 41.6 % (36.0-47.0); HEMOGLOBIN 14.2 g/dL (12.0-15.5); LYMPH # 0.9 x10^3/uL (1.0-4.8); LYMPH % 14 % (24-48); MEAN CORPUSCULAR HEMOGLOBIN 35 pg (25-35); MEAN CORPUSCULAR HGB CONC 34 g/dL (31-37); MEAN CORPUSCULAR VOLUME 101 fL (79-100); MONO # 0.4 x10^3/uL (0.0-1.1); MONO % 6 % (0-9); NEUT # 4.9 x10^3/uL (1.8-7.7); NEUT % 76 % (31-73); PLATELET COUNT 273 x10^3/uL (140-400); RED BLOOD COUNT 4.13 x10^6/uL (3.50-5.40); RED CELL DISTRIBUTION WIDTH 12.5 % (11.5-14.5); WHITE BLOOD COUNT 6.5 x10^3/uL (4.0-11.0)
[2021-10-24 09:07] LABS: CALCIUM 8.4 mg/dL (8.5-10.1); CREATININE 0.8 mg/dL (0.6-1.0); GFR 77.2; POTASSIUM 3.5 mmol/L (3.5-5.1)
[2021-10-24 09:14] LABS: ALBUMIN 3.4 g/dL (3.4-5.0); TOTAL BILIRUBIN 0.2 mg/dL (0.2-1.0); TOTAL PROTEIN 6.8 g/dL (6.4-8.2)
== END ==
LOC: ONCLAB 08:34
PROVIDERS: ATTEND Internal Medicine Hematology & Oncology
DX: C34.02 Malignant neoplasm of left main bronchus (principal)
CPT/HCPCS: 36415; 80053; 85025

== ENCOUNTER → 2021-10-30 | Outpatient (CLI) | payer BC ==
[2021-04-25 10:16] VITALS: BP 103/52
[~2021-10-30] MED LIST changes: +HEPARIN PF 500 UNIT/5 ML DISP.SYRIN. IVP PRN; +IOHEXOL 240 MG/ML 50ML VIAL. PO ONE; +IOHEXOL 300 MG/ML 100ML VIAL. IV ONE
--- NOTE | 2021-10-30 10:50 | RAD ---
CT abdomen chest pelvis with contrast dated 10/30/2021. COMPARISON: 07/31/2021. CLINICAL INDICATION: History of small cell lung cancer. Follow-up exam. TECHNIQUE: Contiguous axial imaging the abdomen pelvis performed after the administration of 75 cc Omnipaque 300 . One or more of the following individualized dose reduction techniques were utilized for this examinat ion: 1. Automated exposure control 2. Adjustment of the mA and/or kV according to patient size 3. Use of iterative reconstruction technique FINDINGS: Central airways are patent. There are patchy and linear opacities in the left upper lobe and lingula that are similar to prior study. There is bronchial wall thickening and mild narrowing of the left up per lobe airways, also unchanged. There is also soft tissue thickening at the left hilum with borderl ine enlarged lymph nodes, unchanged. No evidence of recurrent mass. Minimal patchy density at the dep endent left lower lobe, likely atelectasis. Right lung remains clear. No suspicious pulmonary nodule or mass. No pleural effusion. Heart size is upper limits of normal. No pericardial effusion. There is a borderline enlarged subcari nal lymph node measuring 7 mm short axis, unchanged. Otherwise no mediastinal, hilar or axillary lymp hadenopathy. Thyroid gland is unremarkable. There is a right-sided port in place, unchanged. There is a hyperenhancing nodule in the lateral segment left lobe liver that measures up to 2.4 cm, b est seen on the more arterial phase chest images. This was present on the prior exam where it measure d about 2.4 cm previously. Additional small hyperenhancing focus in the central right lobe liver is a lso unchanged. There is a new low-density nodule within the central left lobe liver near the IVC on s eries 4 image 11 that measures 1.4 cm. Liver is otherwise homogeneous. No biliary ductal dilatation. There are calcified stones in the gallbladder. Spleen is normal in size. Pancreas, adrenal glands and kidneys are unremarkable. No hydronephrosis. Partially opacified GI tract normal in caliber and contour. No focal bowel wall thickening. Appendix is surgically absent. No retroperitoneal or mesenteric lymphadenopathy. The abdominal aorta is normal in caliber. Images of pelvis show nondistended urinary bladder. There is a multilobulated cystic lesion at the ri t adnexa that is bilobed in appearance. The more superior component is heterogeneous and measures u p to 4.1 cm. The more inferior component is more cystic in appearance and measures about 4.3 cm. Find ings are new from prior study. There are also a couple of cystic foci associated with the left ovary that measure up to 2.3 cm, new from prior exam. Trace amount of free fluid. Uterus unremarkable. No i nguinal or iliac chain lymphadenopathy. Bone windows show multiple sclerotic bone lesions throughout all visualized osseous structures, overa ll not significantly changed. No apparent vertebral body collapse. IMPRESSION: 1. Mild soft tissue fullness of the left hilum with linear bands of increased density in the left upp er lobe and lingula, stable from prior study. This is likely related to known malignancy posttreatmen t change. No definite recurrent mass. 2. Borderline enlarged mediastinal lymph nodes, unchanged. 3. There is a new low-density lesion within the central left lobe liver, suspicious for metastasis. I f indicated, liver MRI or follow-up PET/CT to better evaluate. 4. Multiple sclerotic bone lesions consistent with metastatic disease, similar to prior exam. 5. There are cystic mass lesions associated with the bilateral ovary, right greater than left, new fr om prior study. Pelvic ultrasound could better evaluate. Electronically signed by: Jose Dumont MD (10/30/2021 10:48 AM) [facility]
== END ==
LOC: CT 08:43
PROVIDERS: ATTEND Internal Medicine Hematology & Oncology
DX: C34.02 Malignant neoplasm of left main bronchus (principal); K76.89 Other specified diseases of liver; M89.9 Disorder of bone, unspecified; N83.8 Other noninflammatory disorders of ovary, fallopian tube and broad ligament; J98.09 Other diseases of bronchus, not elsewhere classified; Z90.89 Acquired absence of other organs
CPT/HCPCS: 71260; 74177; J1642; Q9966; Q9967

== ENCOUNTER → 2021-11-14 | Outpatient (CLI) | payer BC ==
[2021-04-25 10:16] VITALS: BP 103/52
[~2021-11-14] MED LIST changes: -HEPARIN PF 500 UNIT/5 ML DISP.SYRIN. IVP PRN; -IOHEXOL 240 MG/ML 50ML VIAL. PO ONE; -IOHEXOL 300 MG/ML 100ML VIAL. IV ONE
[2021-11-14 08:33] LABS: BASO # 0.1 x10^3/uL (0.0-0.2); BASO % 1 % (0-3); EOS # 0.3 x10^3/uL (0.0-0.7); EOS % 5 % (0-3); HEMATOCRIT 42.3 % (36.0-47.0); HEMOGLOBIN 14.3 g/dL (12.0-15.5); LYMPH % 19 % (24-48); MEAN CORPUSCULAR HEMOGLOBIN 33 pg (25-35); MEAN CORPUSCULAR HGB CONC 34 g/dL (31-37); MEAN CORPUSCULAR VOLUME 98 fL (79-100); MONO # 0.5 x10^3/uL (0.0-1.1); MONO % 10 % (0-9); NEUT # 3.6 x10^3/uL (1.8-7.7); NEUT % 66 % (31-73); PLATELET COUNT 248 x10^3/uL (140-400); RED CELL DISTRIBUTION WIDTH 12.9 % (11.5-14.5); WHITE BLOOD COUNT 5.4 x10^3/uL (4.0-11.0)
[2021-11-14 08:45] LABS: CALCIUM 8.8 mg/dL (8.5-10.1); CREATININE 0.8 mg/dL (0.6-1.0); GFR 77.2; POTASSIUM 3.7 mmol/L (3.5-5.1)
[2021-11-14 08:51] LABS: ALBUMIN 3.6 g/dL (3.4-5.0); ALBUMIN/GLOBULIN RATIO 1.1 (1.0-1.7); TOTAL BILIRUBIN 0.4 mg/dL (0.2-1.0); TOTAL PROTEIN 6.9 g/dL (6.4-8.2)
== END ==
LOC: ONCLAB 08:18
PROVIDERS: ATTEND Internal Medicine Hematology & Oncology
DX: E03.9 Hypothyroidism, unspecified (principal)
CPT/HCPCS: 36415; 80053; 84439; 84443; 85025

== ENCOUNTER → 2021-11-18 | Outpatient (CLI) | payer BC ==
[2021-04-25 10:16] VITALS: BP 103/52
[~2021-11-18] MED LIST changes: +GADOTERATE 5 MMOL/10ML VIAL. IVP ONE; +HEPARIN PF 500 UNIT/5 ML DISP.SYRIN. IVP ONE
--- NOTE | 2021-11-18 10:20 | NUR ---
Pt here for MRI with contrast, R chest portacath accessed with sterile technique, 20g Contreras needle used, good blood return, easy flush. Will pack with hep lock flush when deaccessing post procedure. Pt alert and oriented x 3, no questions. BRYANT RN
--- NOTE | 2021-11-18 13:51 | RAD ---
MRI brain without and with contrast Contrast: 19 mL Clariscan gadolinium intravenous contrast HISTORY: Cancer staging. History of liver metastases. History of metastatic small cell lung cancer. 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 At the right medial posterior temporal lobe FLAIR is a dominant intra-axial enhancing T2 weighted hyp erintense diffusion-weighted hyperintense lesion with restricted diffusion which measures 15 x 10 mm which is new concerning for metastasis. There is a separate smaller second metastatic brain lesion wi th similar pre and postcontrast imaging features at the left deep parietal lobe abutting the corpus c allosum this lesion measures 8 x 5 mm. Both of these lesions are subependymal however there is no int raventricular extension of these lesions and there is no evidence of ventricular entrapment or hydroc ephalus. There is a smaller third metastatic lesion along the right frontal lobe at the middle fronta l gyrus cortex axial postcontrast image 21 which measures 6 x 4 mm. No intracranial hemorrhage. No hydrocephalus. No infarction. Left mastoid fluid is new. IMPRESSION: 1. 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 2. 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 Electronically signed by: Jose Alejandro Mcdonnell MD (11/18/2021 1:48 PM) [facility]
--- NOTE | 2021-11-19 09:22 | RAD ---
MRI ABDOMEN WITH AND WITHOUT CONTRAST- History: Small cell lung cancer staging. Liver metastasis. Technique: Multiplanar, multi sequential without and with intravenous contrast MR imaging was perform ed of the liver. Comparison: CT abdomen and pelvis 10/30/2021, 07/31/2021, 02/08/2018. PET/CT 05/10/2021 Findings: The liver demonstrates multiple masses. At the anterior left hepatic lobe segment 2, there is a ovoid 1.9 x 1.0 cm T1 hypointense, T2 hyperin tense, nonrestricting mass which demonstrates rapid enhancement with slightly delayed central filling . This has been present since 2018 comparison and is PET negative, most likely a benign hemangioma. A similar characteristic 1.4 x 0.6 cm mass is present in segment 7 adjacent to the hepatic vein which is also favored to represent a benign hemangioma. Within segment 1/4a, there is a 2.5 x 2.0 cm mass which is T1 hypointense, T2 slightly hyperintense w hich demonstrates hypoenhancement and diffusion restriction. This is most concerning for metastatic d isease. Centrally within segment 8 there is a 1.5 x 1.1 cm mass with similar characteristics includin g diffusion restriction also concerning for a site of metastatic disease. At the superior margin of the liver in segment 4A, there is a 1.2 x 1.0 cm T1 hypointensity, T2 hyper intensity which demonstrates hypoenhancement. No definite diffusion restriction is is identified asso ciated with this lesion however position at the liver margin limits evaluation. Sludge or small stones are present within the gallbladder. The pancreas, spleen, adrenal glands, comm on bile duct and kidneys are unremarkable. The stomach and visualized portions of the bowel are unrem arkable. No significant pleural effusion. Visualized marrow signal is nonpathologic. Impression: 1. Hepatic masses measuring 2.5 x 2.0 cm in segment 1/4A and 1.5 x 1.1 cm in segment 8 demonstrate d iffusion restriction and hypoenhancement and are concerning for metastatic disease. These are present on recent comparison CT however not well seen on more remote imaging. 2. An additional 1.2 x 1.0 cm segment 4A mass is also concerning for metastatic disease however does not demonstrate significant effusion restriction and a benign etiology is not excluded. 3. Incidental benign appearing hepatic masses favored to represent hepatic hemangiomas also are pres ent. 4. Gallbladder sludge or stones. No evidence of acute cholecystitis. Electronically signed by: Nathanael Le MD (11/19/2021 9:19 AM) [id number]
== END ==
LOC: MRI 11:43
PROVIDERS: ATTEND Internal Medicine Hematology & Oncology
DX: C79.31 Secondary malignant neoplasm of brain (principal); C78.7 Secondary malignant neoplasm of liver and intrahepatic bile duct; C34.02 Malignant neoplasm of left main bronchus; G95.0 Syringomyelia and syringobulbia; G93.5 Compression of brain; K80.20 Calculus of gallbladder without cholecystitis without obstruction; K76.89 Other specified diseases of liver
CPT/HCPCS: 70553; 74183; A9575; J1642

== ENCOUNTER → 2021-11-26 | Outpatient (CLI) | payer BC ==
[2021-04-25 10:16] VITALS: BP 103/52
[~2021-11-26] MED LIST changes: -GADOTERATE 5 MMOL/10ML VIAL. IVP ONE; -HEPARIN PF 500 UNIT/5 ML DISP.SYRIN. IVP ONE
== END ==
LOC: CT 12:37
PROVIDERS: ATTEND Radiology Radiation Oncology
DX: C79.31 Secondary malignant neoplasm of brain (principal); C34.02 Malignant neoplasm of left main bronchus
CPT/HCPCS: 76380

== ENCOUNTER → 2021-12-03 | Outpatient (CLI) | payer BC ==
[2021-04-25 10:16] VITALS: BP 103/52
[2021-12-03 09:10] LABS: BASO # 0.1 x10^3/uL (0.0-0.2); BASO % 1 % (0-3); EOS # 0.2 x10^3/uL (0.0-0.7); EOS % 2 % (0-3); HEMATOCRIT 42.6 % (36.0-47.0); HEMOGLOBIN 14.2 g/dL (12.0-15.5); LYMPH # 1.3 x10^3/uL (1.0-4.8); LYMPH % 15 % (24-48); MEAN CORPUSCULAR HEMOGLOBIN 33 pg (25-35); MEAN CORPUSCULAR HGB CONC 33 g/dL (31-37); MEAN CORPUSCULAR VOLUME 99 fL (79-100); MONO # 0.7 x10^3/uL (0.0-1.1); MONO % 8 % (0-9); NEUT # 6.6 x10^3/uL (1.8-7.7); NEUT % 75 % (31-73); PLATELET COUNT 245 x10^3/uL (140-400); RED CELL DISTRIBUTION WIDTH 13.1 % (11.5-14.5); WHITE BLOOD COUNT 8.8 x10^3/uL (4.0-11.0)
[2021-12-03 09:18] LABS: CALCIUM 8.3 mg/dL (8.5-10.1); CREATININE 0.8 mg/dL (0.6-1.0); GFR 77.2; POTASSIUM 3.7 mmol/L (3.5-5.1)
[2021-12-03 09:23] LABS: ALBUMIN 3.5 g/dL (3.4-5.0); ALBUMIN/GLOBULIN RATIO 1.2 (1.0-1.7); TOTAL BILIRUBIN 0.3 mg/dL (0.2-1.0); TOTAL PROTEIN 6.5 g/dL (6.4-8.2)
== END ==
LOC: ONCLAB 08:49
PROVIDERS: ATTEND Internal Medicine Hematology & Oncology
DX: C34.02 Malignant neoplasm of left main bronchus (principal)
CPT/HCPCS: 36415; 80053; 85025

== ENCOUNTER → 2021-12-10 | Outpatient (CLI) | payer BC ==
[2021-04-25 10:16] VITALS: BP 103/52
[2021-12-10 09:28] LABS: BASO # 0.1 x10^3/uL (0.0-0.2); BASO % 0 % (0-3); EOS # 0.2 x10^3/uL (0.0-0.7); EOS % 2 % (0-3); HEMATOCRIT 42.4 % (36.0-47.0); HEMOGLOBIN 14.2 g/dL (12.0-15.5); LYMPH # 1.2 x10^3/uL (1.0-4.8); LYMPH % 8 % (24-48); MEAN CORPUSCULAR HEMOGLOBIN 33 pg (25-35); MEAN CORPUSCULAR HGB CONC 34 g/dL (31-37); MEAN CORPUSCULAR VOLUME 99 fL (79-100); MONO # 0.6 x10^3/uL (0.0-1.1); MONO % 4 % (0-9); NEUT # 12.4 x10^3/uL (1.8-7.7); NEUT % 86 % (31-73); PLATELET COUNT 220 x10^3/uL (140-400); RED BLOOD COUNT 4.28 x10^6/uL (3.50-5.40); RED CELL DISTRIBUTION WIDTH 13.6 % (11.5-14.5); WHITE BLOOD COUNT 14.5 x10^3/uL (4.0-11.0)
[2021-12-10 09:43] LABS: CALCIUM 8.3 mg/dL (8.5-10.1); CREATININE 0.9 mg/dL (0.6-1.0); GFR 67.4; POTASSIUM 3.7 mmol/L (3.5-5.1)
[2021-12-10 09:48] LABS: ALBUMIN 3.5 g/dL (3.4-5.0); ALBUMIN/GLOBULIN RATIO 1.2 (1.0-1.7); MAGNESIUM 1.6 mg/dL (1.8-2.4); PHOSPHORUS 4.2 mg/dL (2.6-4.7); TOTAL BILIRUBIN 0.3 mg/dL (0.2-1.0); TOTAL PROTEIN 6.5 g/dL (6.4-8.2)
[2021-12-10 10:58] LABS: % BANDS 8 % (0-9); % LYMPHS 3 % (24-48); % SEGS 89 % (35-66); PLT ESTIMATE ADEQUATE (ADEQUATE)
== END ==
LOC: ONCLAB 09:04
PROVIDERS: ATTEND Internal Medicine Hematology & Oncology
DX: C34.02 Malignant neoplasm of left main bronchus (principal)
CPT/HCPCS: 36415; 80053; 83735; 84100; 85007; 85025

== ENCOUNTER → 2021-12-24 | Outpatient (CLI) | payer BC ==
[2021-04-25 10:16] VITALS: BP 103/52
[2021-12-24 09:08] LABS: BASO # 0.1 x10^3/uL (0.0-0.2); BASO % 1 % (0-3); EOS # 0.1 x10^3/uL (0.0-0.7); EOS % 1 % (0-3); HEMATOCRIT 41.8 % (36.0-47.0); LYMPH # 1.1 x10^3/uL (1.0-4.8); LYMPH % 13 % (24-48); MEAN CORPUSCULAR HEMOGLOBIN 34 pg (25-35); MEAN CORPUSCULAR HGB CONC 34 g/dL (31-37); MEAN CORPUSCULAR VOLUME 100 fL (79-100); MONO # 0.6 x10^3/uL (0.0-1.1); MONO % 7 % (0-9); NEUT # 6.5 x10^3/uL (1.8-7.7); NEUT % 78 % (31-73); PLATELET COUNT 307 x10^3/uL (140-400); RED BLOOD COUNT 4.16 x10^6/uL (3.50-5.40); RED CELL DISTRIBUTION WIDTH 15.2 % (11.5-14.5); WHITE BLOOD COUNT 8.4 x10^3/uL (4.0-11.0)
[2021-12-24 09:15] LABS: CREATININE 0.8 mg/dL (0.6-1.0); GFR 77.2; POTASSIUM 3.7 mmol/L (3.5-5.1)
[2021-12-24 09:20] LABS: ALBUMIN 3.7 g/dL (3.4-5.0); ALBUMIN/GLOBULIN RATIO 1.1 (1.0-1.7); TOTAL BILIRUBIN 0.6 mg/dL (0.2-1.0)
== END ==
LOC: ONCLAB 08:42
PROVIDERS: ATTEND Internal Medicine Hematology & Oncology
DX: C34.02 Malignant neoplasm of left main bronchus (principal); E03.9 Hypothyroidism, unspecified
CPT/HCPCS: 36415; 80053; 84443; 85025

== ENCOUNTER → 2022-01-14 | Outpatient (CLI) | payer BC ==
[2021-04-25 10:16] VITALS: BP 103/52
[~2022-01-14] MED LIST changes: +GADOTERATE 5 MMOL/10ML VIAL. IVP ONE
--- NOTE | 2022-01-15 10:34 | KCIC ---
MRI CERVICAL SPINE WITHOUT AND WITH IV CONTRAST, MRI THORACIC SPINE WITHOUT AND WITH IV CONTRAST History:Reason: SYRINGOMYELIA / History: Worsening BLE numbness. Small cell lung CA.18cc Clariscan Technique: Multiplanar, multi sequential without and with intravenous contrast MR imaging was perform ed of the cervical an thoracic spine. Comparison: CT chest abdomen and pelvis October 30, 2021. Brain MRI November 18, 2021 Findings: Cervical spine MRI: Chiari I malformation. Decreasing roots within the upper cervical cord at the C2 level compared to pr ior MRI. No pathologic enhancement within the cervical spinal cord. Sclerotic lesion throughout C6 vertebral body C2-C3: No canal or neuroforaminal narrowing. Mild facet arthropathy. C3-C4: Minimal disc bulge. No canal or neuroforaminal narrowing. Mild facet arthropathy. C4-C5: Minimal disc bulge. No canal narrowing. No neuroforaminal narrowing. Mild facet arthropathy. C5-C6: Small disc bulge. No canal narrowing. No neuroforaminal narrowing. Mild facet arthropathy. C6-C7: Central disc extrusion extending inferiorly. Moderate canal narrowing. Cord flattening. Unco vertebral and facet arthropathy. Mild left neuroforaminal narrowing. C7-T1: No canal or neuroforaminal narrowing. Thoracic spine: Enhancing mass within the lower thoracic spinal cord intramedullary measures 2.8 cm craniocaudal by 0 .8 cm anterior posterior by 0.9 cm transverse. There is adjacent edema and expansion of the spinal co rd. The lesion is at the T11-T12 level. Dilatation of the distal thoracic central canal. Sclerotic lesions within T8 and T9 vertebral bodies. Heterogeneous lesions within the T11 and T12 kenyetta tebral bodies appear increased compared to prior CT. T11 lesion measures 2.5 x 2.2 cm T12 lesion benita ures 2.2 x 1.6 cm. Additional heterogeneous appearance of the thoracic spine. No acute fracture. Norm al alignment of the vertebral bodies. Potential lesion within left T2 transverse process. Minimal degenerative disc changes. No significant canal or neuroforaminal narrowing due to disc disea se or facet arthropathy. Patchy left perihilar opacities. Impression: Cervical spine MRI: 1. C6 vertebral body metastasis. 2. Mild cervical spondylosis most prominent C6-C7. 3. C6-C7 disc extrusion contributing to moderate canal narrowing with cord flattening. 4. Chiari I malformation with decreased upper cervical spinal cord syrinx. Thoracic spine MRI: 1. Enhancing mass within the lower thoracic spinal cord with edema and expansion, concerning for met astasis given history. 2. Multifocal osseous metastasis. 3. Patchy left perihilar opacities. Recommend chest CT to further assess. Electronically signed by: Gregor Grey DO (01/15/2022 10:32 AM) [id number]
== END ==
LOC: KCIC MRI 14:04
PROVIDERS: ATTEND Neurological Surgery
DX: C80.1 Malignant (primary) neoplasm, unspecified (principal); G95.0 Syringomyelia and syringobulbia; M47.812 Spondylosis without myelopathy or radiculopathy, cervical region; M50.223 Other cervical disc displacement at C6-C7 level; M48.02 Spinal stenosis, cervical region; G93.5 Compression of brain
CPT/HCPCS: 72156; 72157; A9575

== ENCOUNTER → 2022-01-14 | Outpatient (CLI) | payer BC ==
[2021-04-25 10:16] VITALS: BP 103/52
[~2022-01-14] MED LIST changes: -GADOTERATE 5 MMOL/10ML VIAL. IVP ONE
[2022-01-14 08:36] LABS: BASO # 0.1 x10^3/uL (0.0-0.2); BASO % 1 % (0-3); EOS # 0.2 x10^3/uL (0.0-0.7); EOS % 3 % (0-3); HEMATOCRIT 40.7 % (36.0-47.0); LYMPH % 14 % (24-48); MEAN CORPUSCULAR HEMOGLOBIN 36 pg (25-35); MEAN CORPUSCULAR HGB CONC 34 g/dL (31-37); MEAN CORPUSCULAR VOLUME 104 fL (79-100); MONO # 0.8 x10^3/uL (0.0-1.1); MONO % 12 % (0-9); NEUT # 5.1 x10^3/uL (1.8-7.7); NEUT % 71 % (31-73); PLATELET COUNT 312 x10^3/uL (140-400); RED BLOOD COUNT 3.92 x10^6/uL (3.50-5.40); WHITE BLOOD COUNT 7.2 x10^3/uL (4.0-11.0)
[2022-01-14 08:44] LABS: CALCIUM 8.5 mg/dL (8.5-10.1); CREATININE 0.8 mg/dL (0.6-1.0); GFR 76.9; POTASSIUM 3.7 mmol/L (3.5-5.1)
[2022-01-14 08:50] LABS: ALBUMIN 3.6 g/dL (3.4-5.0); ALBUMIN/GLOBULIN RATIO 1.1 (1.0-1.7); TOTAL BILIRUBIN 0.4 mg/dL (0.2-1.0); TOTAL PROTEIN 6.9 g/dL (6.4-8.2)
== END ==
LOC: ONCLAB 08:14
PROVIDERS: ATTEND Internal Medicine Hematology & Oncology
DX: C34.02 Malignant neoplasm of left main bronchus (principal)
CPT/HCPCS: 36415; 80053; 85025

== ENCOUNTER → 2022-01-21 | Outpatient (CLI) | payer BC ==
[2021-04-25 10:16] VITALS: BP 103/52
[2022-01-21 09:12] LABS: BASO % 0 % (0-3); EOS # 0.1 x10^3/uL (0.0-0.7); EOS % 1 % (0-3); HEMATOCRIT 42.1 % (36.0-47.0); LYMPH # 0.9 x10^3/uL (1.0-4.8); LYMPH % 8 % (24-48); MEAN CORPUSCULAR HEMOGLOBIN 35 pg (25-35); MEAN CORPUSCULAR HGB CONC 33 g/dL (31-37); MEAN CORPUSCULAR VOLUME 105 fL (79-100); MONO # 0.5 x10^3/uL (0.0-1.1); MONO % 5 % (0-9); NEUT # 9.3 x10^3/uL (1.8-7.7); NEUT % 85 % (31-73); PLATELET COUNT 227 x10^3/uL (140-400); RED BLOOD COUNT 3.99 x10^6/uL (3.50-5.40); RED CELL DISTRIBUTION WIDTH 17.2 % (11.5-14.5); WHITE BLOOD COUNT 10.8 x10^3/uL (4.0-11.0)
[2022-01-21 09:22] LABS: CALCIUM 8.6 mg/dL (8.5-10.1); CREATININE 0.9 mg/dL (0.6-1.0); GFR 67.1; POTASSIUM 3.7 mmol/L (3.5-5.1)
[2022-01-21 09:27] LABS: ALBUMIN 3.5 g/dL (3.4-5.0); ALBUMIN/GLOBULIN RATIO 1.1 (1.0-1.7); TOTAL BILIRUBIN 0.3 mg/dL (0.2-1.0); TOTAL PROTEIN 6.8 g/dL (6.4-8.2)
== END ==
LOC: ONCLAB 08:42
PROVIDERS: ATTEND Internal Medicine Hematology & Oncology
DX: C79.31 Secondary malignant neoplasm of brain (principal); C34.02 Malignant neoplasm of left main bronchus; E03.9 Hypothyroidism, unspecified
CPT/HCPCS: 36415; 80053; 84443; 85025

== ENCOUNTER → 2022-01-28 | Outpatient (CLI) | payer BC ==
[2021-04-25 10:16] VITALS: BP 103/52
[2022-01-28 09:16] LABS: BASO % 1 % (0-3); EOS # 0.1 x10^3/uL (0.0-0.7); EOS % 2 % (0-3); HEMATOCRIT 39.8 % (36.0-47.0); HEMOGLOBIN 13.8 g/dL (12.0-15.5); LYMPH % 15 % (24-48); MEAN CORPUSCULAR HEMOGLOBIN 37 pg (25-35); MEAN CORPUSCULAR HGB CONC 35 g/dL (31-37); MEAN CORPUSCULAR VOLUME 105 fL (79-100); MONO # 0.7 x10^3/uL (0.0-1.1); MONO % 10 % (0-9); NEUT # 4.9 x10^3/uL (1.8-7.7); NEUT % 73 % (31-73); PLATELET COUNT 328 x10^3/uL (140-400); RED BLOOD COUNT 3.78 x10^6/uL (3.50-5.40); WHITE BLOOD COUNT 6.8 x10^3/uL (4.0-11.0)
[2022-01-28 09:39] LABS: CALCIUM 8.7 mg/dL (8.5-10.1); CREATININE 0.8 mg/dL (0.6-1.0); GFR 76.9; POTASSIUM 3.5 mmol/L (3.5-5.1)
[2022-01-28 09:41] LABS: ALBUMIN 3.7 g/dL (3.4-5.0); ALBUMIN/GLOBULIN RATIO 1.1 (1.0-1.7); TOTAL BILIRUBIN 0.4 mg/dL (0.2-1.0)
== END ==
LOC: ONCLAB 08:36
PROVIDERS: ATTEND Internal Medicine Hematology & Oncology
DX: C34.02 Malignant neoplasm of left main bronchus (principal)
CPT/HCPCS: 36415; 80053; 85025

== ENCOUNTER → 2022-01-30 | Outpatient (CLI) | payer BC ==
[2021-04-25 10:16] VITALS: BP 103/52
[~2022-01-30] MED LIST changes: +CONTRAST GIVEN. MC PRN; +GADOTERATE 7.5 MMOL/15ML VIAL. IVP ONE; +HEPARIN PF 500 UNIT/5 ML DISP.SYRIN. IVP ONE; +IOHEXOL 240 MG/ML 50ML VIAL. PO ONE; +IOHEXOL 300 MG/ML 100ML VIAL. IV ONE
--- NOTE | 2022-01-30 11:52 | RAD ---
EXAM: Brain MRI with and without contrast. HISTORY: Brain metastases. TECHNIQUE: Multiplanar, multisequence magnetic resonance imaging of the brain was performed prior to and following the administration of intravenous contrast. COMPARISON: 11/18/2021 FINDINGS: There has been interval increase in the size and number of intracranial metastases. For ref erence purposes, there has been interval increase in the size of a 1.5 cm metastasis involving the le ft posterior corpus callosum, previously measuring 8 mm. There has been increase in a 6 mm right fron yessenia cortical metastasis, compared to a prior measurement of 5 mm. There is a 9 mm new metastasis with in the posterior medial left parietal lobe, a new 6 mm metastasis within the left thalamus, a new 7 m m metastasis within the anterior left frontal lobe cortex, a new 2 mm metastasis within the inferior medial left frontal lobe, a new 8 mm metastasis within the left cerebellum, a new 2 mm metastasis wit hin the inferior left cerebellum, and a new 4 mm within the posterior medial left frontal lobe cortex . There has been interval decrease in a previously demonstrated 11 mm enhancing lesion within the poste rior right temporal lobe, previously measuring 1.4 cm. There is an incidental developmental venous an omaly within the right parietal lobe. There is no acute or subacute infarction. There is no hemorrhag e. There is mild edema surrounding the aforementioned largest intracranial metastases. There is no mi dline shift. There is no hydrocephalus. The orbits are unremarkable. There is a tiny right maxillary sinus mucous retention cyst or focal muc osal thickening. There is fluid within the left greater than right mastoid air cells. There is cerebe llar tonsillar ectopia, extending approximately 8 mm inferior to the foramen magnum. There is crowdin g of the foramen magnum and an associated syrinx involving the proximal cervical spinal cord measurin g 2 mm in caliber. No suspicious calvarial lesion is seen. IMPRESSION: 1. Progressive intracranial metastatic disease. There are at least 9 measurable lesions which are new or increased compared to the prior exam. The largest of these measures 1.5 cm within the posterior l eft corpus callosum. There has been interval decrease in a previously demonstrated dominant lesion wi thin the posterior right temporal lobe, consistent with mixed interval therapy response. 2. Chiari I malformation with associated crowding of the foramen magnum and a cervical spinal cord sy rinx, the latter of which is not formally assessed on this exam. Electronically signed by: Alyson Ledesma MD (01/30/2022 11:50 AM) [id number]
--- NOTE | 2022-01-30 13:07 | RAD ---
EXAM: CT CHEST, ABDOMEN, AND PELVIS WITH CONTRAST INDICATION: Small cell lung cancer. Brain metastases. COMPARISON: CT chest abdomen pelvis 06/29/2022 TECHNIQUE: Helical CT imaging performed of the chest, abdomen and pelvis after administration of 75 m L Omnipaque 300 intravenous contrast. Sagittal and coronal reformats were obtained. One or more of the following individualized dose reduction techniques were utilized for this examinat ion: 1. Automated exposure control 2. Adjustment of the mA and/or kV according to patient size 3. Use of iterative reconstruction technique. FINDINGS: CHEST: Thyroid gland and thoracic inlet: Normal. Heart and great vessels: The heart is normal in size. No pericardial effusion. The thoracic aorta is normal in caliber. There is a right chest wall port with tip terminating in the superior cavoatrial j unction. Mediastinum and yue: Unchanged small right paratracheal node measuring 4 mm short axis. Unchanged mi ld ill-defined soft tissue at the left hilum. A subcarinal lymph node has decreased in size, now 5 mm short axis, previously 7 mm short axis. Lungs and pleura: There are multiple new bilateral pulmonary nodules. The largest is a 6 mm nodule in the right upper lobe (image 20, series 3) and two 2 5 to 6 mm nodules in the perihilar superior segm ent left lower lobe (image 32, series 3). There are additional new scattered 3-4 mm nodules in the ri ght upper and middle lobes, bilateral lower lobes, and lingula. Bandlike perihilar opacities in the r ight upper lobe are unchanged. No pleural effusion. Chest wall and axillae: No axillary lymphadenopathy. Bones: Multiple small sclerotic lesions in the thoracic spine, ribs, and sternum. ABDOMEN AND PELVIS: Liver: The liver is normal in size. The hypodense mass centrally in segment 8 near the IVC is smaller , now 1.5 x 1.4 cm, previously 2.1 x 2.0 cm (image 13, series 5). The hypodense mass in segment 4A is not clearly seen on this exam. A vague 2.2 cm hyperdense subcapsular mass in segment 2 and a 1.5 cm hyperdense mass in segment 7 are unchanged from MRI 11/18/2021 and were seen on CTA chest 04/07/2022, l ikely hemangiomas. No definite new liver lesions. Gallbladder/Biliary Tree: Cholelithiasis. Bile ducts are normal. Pancreas: Normal. Spleen: Normal. Adrenal Glands: Normal. Kidneys/Ureters/Bladder: Kidneys are normal in size. No nephrolithiasis or hydronephrosis. Ureters an d bladder are normal. Reproductive Organs: Uterus is surgically absent. Cystic masses in the ovaries on 10/30/2021 have resol evangelista. Stomach, small bowel, and colon: There is increased nodular thickening of the gastric antrum (image 2 2 and 25, series 5). The stomach is otherwise normal. No small bowel obstruction. The appendix is not clearly seen in May be surgically absent. The colon is normal. Vasculature: No aortic aneurysm. Lymph Nodes: No lymphadenopathy. Peritoneum and retroperitoneum: Small amount of ascites in the pelvis. Bones: There are multiple sclerotic lesions throughout the lumbar spine and pelvis including a few ne w small sclerotic lesions in the iliac wings (image 32, series 13).. IMPRESSION: 1. Multiple new small pulmonary nodules suspicious for metastases. Unchanged ill-defined soft tissue at the left hilum. A subcarinal lymph node has slightly decreased in size. 2. Decreased size of the hepatic mass centrally in segment 8. The mass in segment 4A is no longer cl early seen. No new liver lesions. 3. Diffuse sclerotic bone metastases including a few new small sclerotic lesions in the pelvis. 4. Increased nodular thickening of the gastric antrum, suspicious for metastatic disease. 5. Resolution of bilateral cystic ovarian lesions. Electronically signed by: Natasha Bowens MD (01/30/2022 1:04 PM) [facility]
== END ==
LOC: MRI 08:09
PROVIDERS: ATTEND Internal Medicine Hematology & Oncology
DX: C79.31 Secondary malignant neoplasm of brain (principal); C79.51 Secondary malignant neoplasm of bone; R91.8 Other nonspecific abnormal finding of lung field; K76.89 Other specified diseases of liver; K31.89 Other diseases of stomach and duodenum; K80.20 Calculus of gallbladder without cholecystitis without obstruction; R18.8 Other ascites; G93.5 Compression of brain; J32.0 Chronic maxillary sinusitis; Z90.710 Acquired absence of both cervix and uterus
CPT/HCPCS: 70553; 71260; 74177; A9575; J1642; Q9966; Q9967

== ENCOUNTER → 2022-02-04 | Outpatient (CLI) | payer BC ==
[2021-04-25 10:16] VITALS: BP 103/52
[~2022-02-04] MED LIST changes: -CONTRAST GIVEN. MC PRN; -GADOTERATE 7.5 MMOL/15ML VIAL. IVP ONE; -HEPARIN PF 500 UNIT/5 ML DISP.SYRIN. IVP ONE; -IOHEXOL 240 MG/ML 50ML VIAL. PO ONE; -IOHEXOL 300 MG/ML 100ML VIAL. IV ONE
[2022-02-04 08:45] LABS: BASO % 0 % (0-3); EOS # 0.1 x10^3/uL (0.0-0.7); EOS % 1 % (0-3); HEMATOCRIT 40.8 % (36.0-47.0); HEMOGLOBIN 14.2 g/dL (12.0-15.5); LYMPH # 0.6 x10^3/uL (1.0-4.8); LYMPH % 9 % (24-48); MEAN CORPUSCULAR HEMOGLOBIN 36 pg (25-35); MEAN CORPUSCULAR HGB CONC 35 g/dL (31-37); MEAN CORPUSCULAR VOLUME 105 fL (79-100); MONO # 0.6 x10^3/uL (0.0-1.1); MONO % 9 % (0-9); NEUT # 5.7 x10^3/uL (1.8-7.7); NEUT % 81 % (31-73); PLATELET COUNT 283 x10^3/uL (140-400); WHITE BLOOD COUNT 7.1 x10^3/uL (4.0-11.0)
[2022-02-04 08:57] LABS: CREATININE 0.9 mg/dL (0.6-1.0); GFR 67.1; POTASSIUM 3.8 mmol/L (3.5-5.1)
[2022-02-04 09:04] LABS: ALBUMIN 3.7 g/dL (3.4-5.0); ALBUMIN/GLOBULIN RATIO 1.2 (1.0-1.7); TOTAL BILIRUBIN 0.5 mg/dL (0.2-1.0); TOTAL PROTEIN 6.9 g/dL (6.4-8.2)
== END ==
LOC: ONCLAB 08:16
PROVIDERS: ATTEND Internal Medicine Hematology & Oncology
DX: C79.31 Secondary malignant neoplasm of brain (principal); C79.49 Secondary malignant neoplasm of other parts of nervous system; C34.02 Malignant neoplasm of left main bronchus; E03.9 Hypothyroidism, unspecified
CPT/HCPCS: 36415; 80053; 84443; 85025

== ENCOUNTER → 2022-02-18 | Outpatient (CLI) | payer BC ==
[2021-04-25 10:16] VITALS: BP 103/52
[2022-02-18 09:59] LABS: BASO % 0 % (0-3); EOS # 0.1 x10^3/uL (0.0-0.7); EOS % 1 % (0-3); HEMATOCRIT 40.7 % (36.0-47.0); LYMPH # 0.5 x10^3/uL (1.0-4.8); LYMPH % 7 % (24-48); MEAN CORPUSCULAR HEMOGLOBIN 36 pg (25-35); MEAN CORPUSCULAR HGB CONC 35 g/dL (31-37); MEAN CORPUSCULAR VOLUME 105 fL (79-100); MONO # 0.7 x10^3/uL (0.0-1.1); MONO % 10 % (0-9); NEUT # 5.9 x10^3/uL (1.8-7.7); NEUT % 81 % (31-73); PLATELET COUNT 250 x10^3/uL (140-400); RED BLOOD COUNT 3.88 x10^6/uL (3.50-5.40); RED CELL DISTRIBUTION WIDTH 15.7 % (11.5-14.5); WHITE BLOOD COUNT 7.3 x10^3/uL (4.0-11.0)
[2022-02-18 10:18] LABS: CALCIUM 9.3 mg/dL (8.5-10.1); CREATININE 0.9 mg/dL (0.6-1.0); GFR 67.1; POTASSIUM 3.7 mmol/L (3.5-5.1)
[2022-02-18 10:27] LABS: ALBUMIN 3.4 g/dL (3.4-5.0); ALBUMIN/GLOBULIN RATIO 0.9 (1.0-1.7); TOTAL BILIRUBIN 0.4 mg/dL (0.2-1.0)
== END ==
LOC: ONCLAB 09:19
PROVIDERS: ATTEND Internal Medicine Hematology & Oncology
DX: C34.02 Malignant neoplasm of left main bronchus (principal)
CPT/HCPCS: 36415; 80053; 85025